=== PATIENT | female | born 1960 | race Caucasian/White ===

== ENCOUNTER → 2016-11-22 | Outpatient (CLI) | payer MEDICARE, OTHER ==
[~2016-11-22] MED LIST: ACETAMINOPHEN TAB 325 MG TAB PO ONE; LORATADINE 10 MG TAB PO ONE; SODIUM CHLORIDE 0.9% 250 ML in EMPTY BAG 1 BAG IV PRN; SODIUM CHLORIDE 0.9% 500 ML in EMPTY BAG 1 BAG IV PRN
[2016-11-22 12:13] VITALS: TEMP 98.5
[2016-11-22 12:52] VITALS: RESP 18
[2016-11-22 13:43] VITALS: BP 107/60; PULSE 64
== END | disposition home or self-care (01) ==
LOC: PROCWHC3 11:33
PROVIDERS: ATTEND Student in an Organized Health Care Education/Training Program
DX: K50.012 Crohn's disease of small intestine with intestinal obstruction (principal)
CPT/HCPCS: 96361; 96413; 96415; J1745

== ENCOUNTER → 2016-12-24 | Outpatient (CLI) | payer MEDICARE, OTHER ==
--- NOTE | 2016-12-24 16:05 | BD ---
EXAMINATION TYPE: MG DEXA axial skeleton. DATE OF EXAM: 12/24/2016 1:33 PM COMPARISON: 2016 CLINICAL HISTORY: disorder of bone, Crohn's disease and postmenopausal female Height: 4'10 Weight: 117 FRAX RISK QUESTIONS: Alcohol (3 or more units per day): no Family History (Parent hip fracture): no Glucocorticoids (More than 3mos): no (Ex: prednisone, prednisolone, methylprednisolone, dexamethasone, and hydrocortisone). History of Fracture in Adulthood: no Secondary Osteoporosis: 1. Type 1 Diabetes: no 2. Hyperthyroidism: no 3. Menopause before 45: yes 4. Malnutrition: no 5. Chronic liver disease: no Rheumatoid Arthritis: no Current Tobacco Use: no RISK FACTORS HISTORY OF: Family History of Osteoporosis: Postmenopausal woman: MEDICATIONS: Thyroid Medications: Which medication: Synthroid How Lon years Additional Medications: Crohn's disease , high blood pressure Additional History: Crohn's disease EXAM MEASUREMENTS: Bone mineral densitometry was performed using the [email or web address] System. Bone mineral density as measured about the Lumbar spine is: ----- L1-L4(G/cm2): 0.985 T Score Values are as follows: ----- L2: -1.6 ----- L3: -1.6 ----- L4: -2.4 ----- L1-L4: -1.6 Bone mineral density has: Increased 1.5% since study of: 10/20/2015 Bone mineral density about the R hip (g/cm2): 0.831 Bone mineral density about the L hip (g/cm2): 0.814 T Score values are as follows: -----R Neck: -1.5 -----L Neck: -1.6 -----R Intertrochanter: -1.0 -----L Intertrochanter: -1.7 Bone mineral density has: Increased 4.2% since study of: 10/20/2015 IMPRESSION: Osteopenia (T Score between -2.5 and -1 as noted by T score valuesL1-L4, Michael Hips There is slightly increased risk of fracture and the patient may be considered for treatment. Re-Screen 1-2 years. NOTE: T-SCORE=SD OF THE YOUNG ADULT MEAN.
== END | disposition home or self-care (01) ==
LOC: RADBDWWP 13:13
PROVIDERS: ATTEND Student in an Organized Health Care Education/Training Program
DX: M85.80 Other specified disorders of bone density and structure, unspecified site (principal); K50.80 Crohn's disease of both small and large intestine without complications
CPT/HCPCS: 77080

== ENCOUNTER → 2017-01-17 | Outpatient (CLI) | payer MEDICARE, OTHER ==
[2017-01-17 12:10] VITALS: RESP 18; TEMP 98.5
[2017-01-17 13:23] VITALS: BP 131/63; PULSE 70
[2017-01-17 15:19] LABS: Hepatitis B Surface Ag Index 0.07
[2017-01-17 15:25] LABS: Hepatitis B Core IgM Index 0.04
[2017-01-17 15:36] LABS: Hepatitis C Virus IgG Index 0.02
[2017-01-17 15:50] LABS: Hepatitis C Virus IgG Ab Negative (Negative)
[2017-01-17 19:19] LABS: Bilirubin, Delta 0.3 mg/dL (0.0-0.2); Total Bilirubin 0.8 mg/dL (0.2-1.3)
== END ==
LOC: PROCWHC3 11:32
PROVIDERS: ATTEND Student in an Organized Health Care Education/Training Program
DX: K50.012 Crohn's disease of small intestine with intestinal obstruction (principal)
CPT/HCPCS: 80076; 80074; 96361; 96413; 96415; 36415; J1745

== ENCOUNTER → 2017-03-20 | Outpatient (CLI) | payer MEDICARE, OTHER ==
[2017-03-20 12:04] VITALS: TEMP 98.1
[2017-03-20 14:01] VITALS: BP 124/54; PULSE 65; RESP 18
== END | disposition home or self-care (01) ==
LOC: PROCWHC3 11:33
PROVIDERS: ATTEND Student in an Organized Health Care Education/Training Program
DX: K50.012 Crohn's disease of small intestine with intestinal obstruction (principal)
CPT/HCPCS: 84450; 96413; 96415; 36415; J1745

== ENCOUNTER → 2017-05-28 | Outpatient (CLI) | payer MEDICARE, OTHER ==
[~2017-05-28] MED LIST changes: -SODIUM CHLORIDE 0.9% 250 ML in EMPTY BAG 1 BAG IV PRN
[2017-05-28 11:49] VITALS: RESP 16; TEMP 99
[2017-05-28 12:34] LABS: Bilirubin, Delta 0.2 mg/dL (0.0-0.2); Total Bilirubin 0.8 mg/dL (0.2-1.3); Total Protein 7.1 g/dL (6.3-8.2)
[2017-05-28 13:55] VITALS: BP 130/62; PULSE 69
== END | disposition home or self-care (01) ==
LOC: PROCWHC3 11:20
PROVIDERS: ATTEND Student in an Organized Health Care Education/Training Program
DX: K50.012 Crohn's disease of small intestine with intestinal obstruction (principal)
CPT/HCPCS: 80076; 96413; 96415; 36415; J1745

== ENCOUNTER → 2017-07-24 | Outpatient (CLI) | payer MEDICARE, OTHER ==
--- NOTE | 2017-07-25 09:06 | MM ---
Reason for exam: screening (asymptomatic). Last mammogram was performed 2 years and 4 months ago. History: Patient history of other cancer. Took progesterone for 3 months. Physical Findings: A clinical breast exam by your physician is recommended on an annual basis and results should be correlated with mammographic findings. MG Screening Mammo w CAD Bilateral CC and MLO view(s) were taken. Prior study comparison: March 14, 2015, bilateral MG screening mammo w CAD. October 03, 2004, bilateral screening mammogram. The breast tissue is heterogeneously dense. This may lower the sensitivity of mammography. There is no discrete abnormality. No significant changes when compared with prior studies. ASSESSMENT: Negative, BI-RAD 1 RECOMMENDATION: Routine screening mammogram of both breasts in 1 year.
== END ==
LOC: RADMAMWWP 11:22
PROVIDERS: ATTEND Family Medicine
DX: Z12.31 Encounter for screening mammogram for malignant neoplasm of breast (principal)

== ENCOUNTER → 2017-11-12 | Outpatient (CLI) | payer MEDICARE, OTHER ==
[~2017-11-12] MED LIST changes: +INFLIXIMAB-DYYB 400 MG in SODIUM CHLORIDE 0.9% 250 ML IV ONE
[2017-11-12 11:55] VITALS: TEMP 98.4
[2017-11-12 12:21] LABS: Bilirubin, Delta 0.4 mg/dL (0.0-0.2); Bilirubin,Unconjugated 0.6 mg/dL (0.0-1.1); Total Protein 7.2 g/dL (6.3-8.2)
[2017-11-12 13:30] VITALS: RESP 14
[2017-11-12 14:13] VITALS: BP 123/80; PULSE 70
== END | disposition home or self-care (01) ==
LOC: PROCWHC3 11:32
PROVIDERS: ATTEND Student in an Organized Health Care Education/Training Program
DX: K50.012 Crohn's disease of small intestine with intestinal obstruction (principal)
CPT/HCPCS: 80076; 96413; 96415; Q5102

== ENCOUNTER → 2018-01-07 | Outpatient (CLI) | payer MEDICARE, OTHER ==
[~2018-01-07] MED LIST changes: +ACETAMINOPHEN TAB 325 MG TAB PO NR; -ACETAMINOPHEN TAB 325 MG TAB PO ONE; +INFLIXIMAB-DYYB 400 MG in SODIUM CHLORIDE 0.9% 250 ML IV NR; -INFLIXIMAB-DYYB 400 MG in SODIUM CHLORIDE 0.9% 250 ML IV ONE; +LORATADINE 10 MG TAB PO NR; -LORATADINE 10 MG TAB PO ONE
[2018-01-07 11:30] VITALS: RESP 16; TEMP 98.5
[2018-01-07 11:55] LABS: Albumin 3.6 g/dL (3.5-5.0); Bilirubin, Delta 0.2 mg/dL (0.0-0.2); Bilirubin,Unconjugated 0.5 mg/dL (0.0-1.1); Total Bilirubin 0.7 mg/dL (0.2-1.3); Total Protein 6.5 g/dL (6.3-8.2)
[2018-01-07 13:15] VITALS: BP 130/84; PULSE 63
== END | disposition home or self-care (01) ==
LOC: PROCWHC3 10:57
PROVIDERS: ATTEND Student in an Organized Health Care Education/Training Program
DX: K50.012 Crohn's disease of small intestine with intestinal obstruction (principal)
CPT/HCPCS: 80076; Q5102; 96413; 96415

== ENCOUNTER → 2018-03-04 | Outpatient (CLI) | payer MEDICARE, OTHER ==
[~2018-03-04] MED LIST changes: -ACETAMINOPHEN TAB 325 MG TAB PO NR; -INFLIXIMAB-DYYB 400 MG in SODIUM CHLORIDE 0.9% 250 ML IV NR; +INFLIXIMAB-DYYB 400 MG in SODIUM CHLORIDE 0.9% 250 ML IV ONE; -LORATADINE 10 MG TAB PO NR
[2018-03-04 11:12] VITALS: TEMP 98.2
[2018-03-04 11:44] LABS: Albumin 4.2 g/dL (3.5-5.0); Bilirubin, Delta 0.4 mg/dL (0.0-0.2); Bilirubin,Unconjugated 0.6 mg/dL (0.0-1.1); Total Protein 7.3 g/dL (6.3-8.2)
[2018-03-04 13:03] VITALS: BP 109/62; PULSE 74; RESP 14
[2018-03-04 19:53] LABS: Hepatitis A Antibody IgM Non-Reactive (Non-Reactive); Hepatitis C IgG Antibody Non-Reactive (Non-Reactive)
== END | disposition home or self-care (01) ==
LOC: PROCWHC3 10:57
PROVIDERS: ATTEND Student in an Organized Health Care Education/Training Program
DX: K50.012 Crohn's disease of small intestine with intestinal obstruction (principal)
CPT/HCPCS: 86803; 86709; 80076; 87340; 86704; 96413; 96415; 36415; Q5103

== ENCOUNTER → 2018-05-01 | Outpatient (CLI) | payer MEDICARE, OTHER ==
[~2018-05-01] MED LIST changes: +ACETAMINOPHEN TAB 325 MG TAB PO ONE; +LORATADINE 10 MG TAB PO ONE
[2018-05-01 12:00] VITALS: TEMP 98.4
[2018-05-01 12:09] LABS: Albumin 3.8 g/dL (3.5-5.0); Bilirubin, Delta 0.2 mg/dL (0.0-0.2); Bilirubin,Unconjugated 0.4 mg/dL (0.0-1.1); Total Bilirubin 0.6 mg/dL (0.2-1.3); Total Protein 6.7 g/dL (6.3-8.2)
[2018-05-01 12:32] VITALS: RESP 18
[2018-05-01 13:11] VITALS: BP 142/81; PULSE 89
== END | disposition home or self-care (01) ==
LOC: PROCWHC3 11:29
PROVIDERS: ATTEND Student in an Organized Health Care Education/Training Program
DX: K50.012 Crohn's disease of small intestine with intestinal obstruction (principal)
CPT/HCPCS: 80076; 96413; 96415; 36415; Q5103

== ENCOUNTER → 2018-06-26 | Outpatient (CLI) | payer MEDICARE, OTHER ==
[~2018-06-26] MED LIST changes: -ACETAMINOPHEN TAB 325 MG TAB PO ONE; +INFLIXIMAB-DYYB 400 MG in SODIUM CHLORIDE 0.9% 250 ML IV NR; -INFLIXIMAB-DYYB 400 MG in SODIUM CHLORIDE 0.9% 250 ML IV ONE; -LORATADINE 10 MG TAB PO ONE
[2018-06-26 11:37] VITALS: TEMP 98
[2018-06-26 12:33] VITALS: RESP 16
[2018-06-26 13:23] VITALS: BP 138/74; PULSE 73
[2018-06-26 13:23] LABS: Albumin 4.1 g/dL (3.5-5.0); Bilirubin, Delta 0.4 mg/dL (0.0-0.2); Bilirubin,Unconjugated 0.7 mg/dL (0.0-1.1); Total Bilirubin 1.1 mg/dL (0.2-1.3); Total Protein 7.5 g/dL (6.3-8.2)
== END | disposition home or self-care (01) ==
LOC: PROCWHC3 11:21
PROVIDERS: ATTEND Student in an Organized Health Care Education/Training Program
DX: K50.012 Crohn's disease of small intestine with intestinal obstruction (principal)
CPT/HCPCS: 80076; 96413; 96415; 36415; Q5103

== ENCOUNTER → 2018-08-21 | Outpatient (CLI) | payer MEDICARE, OTHER ==
[~2018-08-21] MED LIST changes: +ACETAMINOPHEN TAB 325 MG TAB PO NR; +LORATADINE 10 MG TAB PO NR; +SODIUM CHLORIDE 0.9% 500 ML 500 ML in EMPTY BAG 1 BAG IV PRN; -SODIUM CHLORIDE 0.9% 500 ML in EMPTY BAG 1 BAG IV PRN
[2018-08-21 11:44] VITALS: TEMP 98
[2018-08-21 12:53] VITALS: BP 114/74; PULSE 79; RESP 18
[2018-08-21 13:33] LABS: Albumin 3.7 g/dL (3.5-5.0); Bilirubin, Delta 0.4 mg/dL (0.0-0.2); Bilirubin,Unconjugated 0.2 mg/dL (0.0-1.1); Total Bilirubin 0.6 mg/dL (0.2-1.3); Total Protein 6.9 g/dL (6.3-8.2)
== END | disposition home or self-care (01) ==
LOC: PROCWHC3 11:15
PROVIDERS: ATTEND Student in an Organized Health Care Education/Training Program
DX: K50.012 Crohn's disease of small intestine with intestinal obstruction (principal)
CPT/HCPCS: 80076; 96413; 96415; 36415; Q5103

== ENCOUNTER → 2018-09-15 | Outpatient (CLI) | payer MEDICARE, OTHER ==
--- NOTE | 2018-09-16 13:10 | MM ---
Reason for exam: screening (asymptomatic). Last mammogram was performed 1 year and 2 months ago. History: Patient is postmenopausal and has history of other cancer at age 54. Took progesterone for 3 months. Physical Findings: A clinical breast exam by your physician is recommended on an annual basis and results should be correlated with mammographic findings. MG Screening Mammo w CAD Bilateral CC and MLO view(s) were taken. Prior study comparison: July 24, 2017, bilateral MG screening mammo w CAD. March 14, 2015, bilateral MG screening mammo w CAD. There are scattered fibroglandular densities. No significant changes when compared with prior studies. ASSESSMENT: Benign, BI-RAD 2 RECOMMENDATION: Routine screening mammogram of both breasts in 1 year.
== END ==
LOC: RADMAMWWP 13:04
PROVIDERS: ATTEND Family Medicine
DX: Z12.31 Encounter for screening mammogram for malignant neoplasm of breast (principal)
CPT/HCPCS: 77067

== ENCOUNTER → 2018-10-16 | Outpatient (CLI) | payer MEDICARE, OTHER ==
[2018-10-16 11:38] VITALS: TEMP 98
[2018-10-16 12:02] LABS: Albumin 3.8 g/dL (3.5-5.0); Bilirubin, Delta 0.2 mg/dL (0.0-0.2); Bilirubin,Unconjugated 0.8 mg/dL (0.0-1.1)
[2018-10-16 12:47] VITALS: RESP 16
[2018-10-16 13:27] VITALS: BP 133/85; PULSE 74
== END | disposition home or self-care (01) ==
LOC: PROCWHC3 11:23
PROVIDERS: ATTEND Student in an Organized Health Care Education/Training Program
DX: K50.012 Crohn's disease of small intestine with intestinal obstruction (principal)
CPT/HCPCS: 80076; 96413; 96415; 36415; Q5103

== ENCOUNTER → 2018-12-11 | Outpatient (CLI) | payer MEDICARE, OTHER ==
[~2018-12-11] MED LIST changes: -ACETAMINOPHEN TAB 325 MG TAB PO NR; +ACETAMINOPHEN TAB 325 MG TAB PO ONE; -LORATADINE 10 MG TAB PO NR; +LORATADINE 10 MG TAB PO ONE
[2018-12-11 11:07] VITALS: TEMP 98.4
[2018-12-11 11:39] LABS: Albumin 4.2 g/dL (3.5-5.0); Bilirubin, Delta 0.1 mg/dL (0.0-0.2); Total Bilirubin 1.1 mg/dL (0.2-1.3); Total Protein 7.4 g/dL (6.3-8.2)
[2018-12-11 12:41] VITALS: BP 103/69; PULSE 74; RESP 18
[2018-12-11 18:09] LABS: Hepatitis A Antibody IgM Reactive (Non-Reactive); Hepatitis B Core IgM Non-Reactive (Non-Reactive)
== END ==
LOC: PROCWHC3 10:39
PROVIDERS: ATTEND Student in an Organized Health Care Education/Training Program
DX: K50.012 Crohn's disease of small intestine with intestinal obstruction (principal)
CPT/HCPCS: 86709; 80076; 80074; 96413; 96415; 36415; Q5103

== ENCOUNTER → 2018-12-17 | Outpatient (CLI) | payer MEDICARE, OTHER ==
[2018-12-17 15:17] LABS: Basophils # (A) 0.1 k/uL (0-0.2); Basophils % (A) 1 %; Eosinophils # (A) 0.1 k/uL (0-0.7); Eosinophils % (A) 2 %; HCT 44.9 % (34.0-46.0); HGB 14.4 gm/dL (11.4-16.0); Lymphocytes # (A) 2.6 k/uL (1.0-4.8); Lymphocytes % (A) 31 %; MCH 31.5 pg (25.0-35.0); MCHC 32.1 g/dL (31.0-37.0); Mean Platelet Volume 7.6; Monocytes # (A) 0.5 k/uL (0-1.0); Monocytes % (A) 6 %; Neutrophils # (A) 4.8 k/uL (1.3-7.7); Neutrophils % (A) 59 %; Platelet Count 231 k/uL (150-450); RBC 4.58 m/uL (3.80-5.40); RDW 13.2 % (11.5-15.5); WBC 8.2 k/uL (3.8-10.6)
[2018-12-17 15:26] LABS: INR 0.9 (<1.2); Prothrombin Time 9.4 sec (9.0-12.0)
[2018-12-17 19:26] LABS: Albumin 4.3 g/dL (3.80-4.90); Albumin/Globulin Ratio 1.72 (1.60-3.17); Anion Gap 8.3 mmol/L (4.00-12.00); Calcium 9.6 mg/dL (8.7-10.3); Carbon Dioxide 30.7 mmol/L (21.6-31.8); Globulin 2.5 g/dL (1.6-3.3); Potassium 4.4 mmol/L (3.5-5.5); Total Bilirubin 0.7 mg/dL (0.2-1.2); Total Protein 6.8 g/dL (6.2-8.2)
== END ==
LOC: LABWHC1 14:12
PROVIDERS: ATTEND Student in an Organized Health Care Education/Training Program
DX: B15.9 Hepatitis A without hepatic coma (principal); R89.9 Unspecified abnormal finding in specimens from other organs, systems and tissues
CPT/HCPCS: 36415; 80053; 85025; 85610

== ENCOUNTER → 2018-12-24 | Outpatient (CLI) | payer MEDICARE, OTHER ==
[2018-12-24 21:15] LABS: Hepatitis A Ab, Total Reactive (Non-Reactive); Hepatitis A Antibody IgM Non-Reactive (Non-Reactive)
== END ==
LOC: LABWHC1 12:05
PROVIDERS: ATTEND Internal Medicine Gastroenterology
DX: R76.8 Other specified abnormal immunological findings in serum (principal)
CPT/HCPCS: 36415; 86708; 86709

== ENCOUNTER → 2019-02-05 | Outpatient (CLI) | payer MEDICARE, OTHER ==
[2019-02-05 11:51] VITALS: RESP 18; TEMP 98.6
[2019-02-05 12:24] LABS: ALT 27 U/L (9-52); AST 23 U/L (14-36); Albumin 4.1 g/dL (3.5-5.0); Alkaline Phosphatase 121 U/L (38-126); Anion Gap 9 mmol/L; Blood Urea Nitrogen 11 mg/dL (7-17); Calcium 9.7 mg/dL (8.4-10.2); Carbon Dioxide 22 mmol/L (22-30); Chloride 109 mmol/L (98-107); Glucose 102 mg/dL (74-99); Potassium 4.3 mmol/L (3.5-5.1); Sodium 140 mmol/L (137-145); Total Bilirubin 0.9 mg/dL (0.2-1.3); Total Protein 7.4 g/dL (6.3-8.2)
[2019-02-05 12:36] VITALS: BP 126/76; PULSE 64
[2019-02-05 19:46] LABS: Iron Saturation 14.48 (12.00-45.00)
[2019-02-05 19:55] LABS: Vitamin D 25 Hydroxy 23.7 ng/mL (30.0-100.0)
== END ==
LOC: PROCWHC3 10:58
PROVIDERS: ATTEND Student in an Organized Health Care Education/Training Program
DX: K50.819 Crohn's disease of both small and large intestine with unspecified complications (principal)
CPT/HCPCS: 80053; 82607; 83540; 83550; 82306; 96413; 96415; 36415; Q5103

== ENCOUNTER → 2019-02-05 | Outpatient (CLI) | payer MEDICARE, OTHER | END | disposition home or self-care (01) | LOC: LABWHC1 14:06 | PROVIDERS: ATTEND Student in an Organized Health Care Education/Training Program | DX: K50.819 Crohn's disease of both small and large intestine with unspecified complications (principal) | CPT/HCPCS: 36415 ==

== ENCOUNTER → 2019-04-02 | Outpatient (CLI) | payer MEDICARE, OTHER ==
[~2019-04-02] MED LIST changes: +ACETAMINOPHEN TAB 325 MG TAB PO NR; -ACETAMINOPHEN TAB 325 MG TAB PO ONE; +LORATADINE 10 MG TAB PO NR; -LORATADINE 10 MG TAB PO ONE
[2019-04-02 10:59] VITALS: TEMP 98.6
[2019-04-02 11:38] LABS: Basophils # (A) 0.1 k/uL (0-0.2); Basophils % (A) 1 %; Eosinophils # (A) 0.2 k/uL (0-0.7); Eosinophils % (A) 3 %; HCT 42.5 % (34.0-46.0); HGB 14.2 gm/dL (11.4-16.0); Lymphocytes # (A) 1.9 k/uL (1.0-4.8); Lymphocytes % (A) 26 %; MCHC 33.4 g/dL (31.0-37.0); MCV 95.7 fL (80.0-100.0); Mean Platelet Volume 7.8; Monocytes # (A) 0.4 k/uL (0-1.0); Monocytes % (A) 5 %; Neutrophils # (A) 4.7 k/uL (1.3-7.7); Neutrophils % (A) 63 %; Platelet Count 240 k/uL (150-450); RBC 4.44 m/uL (3.80-5.40); RDW 13.7 % (11.5-15.5); WBC 7.4 k/uL (3.8-10.6)
[2019-04-02 11:53] LABS: ALT 18 U/L (9-52); AST 22 U/L (14-36); African American GFR (CKD) >90 (>60 ml/min/1.73 sqM); Albumin 4.1 g/dL (3.5-5.0); Alkaline Phosphatase 121 U/L (38-126); Anion Gap 8 mmol/L; Bilirubin, Delta 0.2 mg/dL (0.0-0.2); Bilirubin,Unconjugated 0.8 mg/dL (0.0-1.1); Blood Urea Nitrogen 12 mg/dL (7-17); Calcium 9.5 mg/dL (8.4-10.2); Carbon Dioxide 23 mmol/L (22-30); Chloride 110 mmol/L (98-107); Cholesterol 161 mg/dL (<200); Glucose 93 mg/dL (74-99); HDL Cholesterol 54 mg/dL (40-60); LDL Cholesterol,Calculated 53 mg/dL (0-99); Potassium 4.1 mmol/L (3.5-5.1); Sodium 141 mmol/L (137-145); Total Protein 7.2 g/dL (6.3-8.2); Triglycerides 271 mg/dL (<150)
[2019-04-02 12:33] VITALS: BP 123/67; PULSE 59; RESP 16
== END | disposition home or self-care (01) ==
LOC: PROCWHC3 10:42
PROVIDERS: ATTEND Family Medicine
DX: K50.812 Crohn's disease of both small and large intestine with intestinal obstruction (principal); E03.9 Hypothyroidism, unspecified; I10 Essential (primary) hypertension; R79.89 Other specified abnormal findings of blood chemistry; E78.00 Pure hypercholesterolemia, unspecified
CPT/HCPCS: 80061; 80053; 84443; 82248; 85025; 87340; 96413; 96415; 36415; Q5103

== ENCOUNTER → 2019-06-01 | Outpatient (CLI) | payer MEDICARE, OTHER ==
[2019-06-01 11:46] VITALS: TEMP 98.8
[2019-06-01 12:21] LABS: Bilirubin, Delta 0.4 mg/dL (0.0-0.2); Bilirubin,Unconjugated 0.7 mg/dL (0.0-1.1); Total Bilirubin 1.1 mg/dL (0.2-1.3)
[2019-06-01 12:37] VITALS: RESP 18
[2019-06-01 12:38] LABS: Total Protein 7.5 g/dL (6.3-8.2)
[2019-06-01 13:29] VITALS: BP 122/69; PULSE 56
== END ==
LOC: PROCWHC3 11:30
PROVIDERS: ATTEND Student in an Organized Health Care Education/Training Program
DX: K50.819 Crohn's disease of both small and large intestine with unspecified complications (principal)
CPT/HCPCS: 80076; 96413; 96415; 36415; Q5103

== ENCOUNTER → 2019-07-27 | Outpatient (CLI) | payer MEDICARE, OTHER ==
[~2019-07-27] MED LIST changes: -ACETAMINOPHEN TAB 325 MG TAB PO NR; +ACETAMINOPHEN TAB 325 MG TAB PO ONE; +INFLIXIMAB-DYYB 400 MG in SODIUM CHLORIDE 0.9% 210 ML IV NR; -INFLIXIMAB-DYYB 400 MG in SODIUM CHLORIDE 0.9% 250 ML IV NR; -LORATADINE 10 MG TAB PO NR; +LORATADINE 10 MG TAB PO ONE
[2019-07-27 11:58] VITALS: PULSE 88; TEMP 98.2
[2019-07-27 12:24] LABS: Albumin 4.1 g/dL (3.5-5.0); Bilirubin, Delta 0.2 mg/dL (0.0-0.2); Bilirubin,Unconjugated 0.7 mg/dL (0.0-1.1); Total Bilirubin 0.9 mg/dL (0.2-1.3); Total Protein 7.5 g/dL (6.3-8.2)
[2019-07-27 13:12] VITALS: RESP 16
[2019-07-27 13:37] VITALS: BP 123/76
== END | disposition home or self-care (01) ==
LOC: PROCWHC3 11:38
PROVIDERS: ATTEND Student in an Organized Health Care Education/Training Program
DX: K50.819 Crohn's disease of both small and large intestine with unspecified complications (principal)
CPT/HCPCS: 80076; 96365; 96366; 36415; Q5103

== ENCOUNTER → 2019-10-12 | Outpatient (CLI) | payer MEDICARE, OTHER ==
--- NOTE | 2019-10-15 10:54 | MM ---
Reason for exam: screening (asymptomatic). Last mammogram was performed 1 year and 1 month ago. History: Patient is postmenopausal and has history of other cancer at age 54. Took progesterone for 3 months. Physical Findings: A clinical breast exam by your physician is recommended on an annual basis and results should be correlated with mammographic findings. MG Screening Mammo w CAD Bilateral CC and MLO view(s) were taken. Prior study comparison: September 15, 2018, bilateral MG screening mammo w CAD. July 24, 2017, bilateral MG screening mammo w CAD. The breast tissue is heterogeneously dense. This may lower the sensitivity of mammography. There are benign appearing round regional calcifications in the right breast. There is no discrete abnormality. ASSESSMENT: Benign, BI-RAD 2 RECOMMENDATION: Routine screening mammogram of both breasts in 1 year.
== END | disposition home or self-care (01) ==
LOC: RADMAMWWP 13:38
PROVIDERS: ATTEND General Practice
DX: Z12.31 Encounter for screening mammogram for malignant neoplasm of breast (principal)
CPT/HCPCS: 77067

== ENCOUNTER 2019-11-07 16:19 | Emergency (ER) | payer MEDICARE, OTHER ==
[2019-11-07 16:24] VITALS: TEMP 98.8
[2019-11-07] MEDS ORDERED: SODIUM CHLORIDE 0.9% 1,000 ML IV STA (16:46)
[2019-11-07] MEDS ORDERED: KETOROLAC 30 MG/ML 1 ML VIAL IVP STA (16:46)
[2019-11-07 17:06] LABS: Basophils % (A) 0 %; Eosinophils # (A) 0.1 k/uL (0-0.7); Eosinophils % (A) 1 %; HGB 14.9 gm/dL (11.4-16.0); Lymphocytes # (A) 1.4 k/uL (1.0-4.8); Lymphocytes % (A) 9 %; MCH 30.3 pg (25.0-35.0); MCHC 31.6 g/dL (31.0-37.0); MCV 95.8 fL (80.0-100.0); Mean Platelet Volume 8.9; Monocytes # (A) 0.4 k/uL (0-1.0); Monocytes % (A) 3 %; Neutrophils # (A) 13.6 k/uL (1.3-7.7); Neutrophils % (A) 87 %; Platelet Count 299 k/uL (150-450); WBC 15.7 k/uL (3.8-10.6)
[2019-11-07 17:11] LABS: Appearance,Urine Cloudy (Clear); Bacteria,Urine Rare /hpf; Bilirubin,Urine Negative (Negative); Blood,Urine Large (Negative); Color,Urine Yellow; Glucose,Urine (UA) Negative (Negative); Ketones,Urine 1+ (Negative); Leukocyte Esterase,Urine Small (Negative); Mucus,Urine Rare /hpf; Nitrite,Urine Negative (Negative); PH, Urine 5.5 (5.0-8.0); Protein,Urine 1+ (Negative); RBC,Urine >182 /hpf (0-5); Specific Gravity,Urine 1.021 (1.001-1.035); Squamous Epithelial Cell,Urine 5 /hpf (0-4); Urobilinogen,Urine <2.0 mg/dL (<2.0); WBC,Urine 14 /hpf (0-5)
[2019-11-07 17:19] LABS: ALT 23 U/L (4-34); AST 33 U/L (14-36); African American GFR (CKD) >90 (>60 ml/min/1.73 sqM); Albumin 4.8 g/dL (3.5-5.0); Alkaline Phosphatase 152 U/L (38-126); Amylase 120 U/L (30-110); Anion Gap 14 mmol/L; Blood Urea Nitrogen 14 mg/dL (7-17); Calcium 10.1 mg/dL (8.4-10.2); Carbon Dioxide 17 mmol/L (22-30); Chloride 108 mmol/L (98-107); Glucose 129 mg/dL (74-99); Non-African American GFR(CKD) 78 (>60 ml/min/1.73 sqM); Potassium 4.4 mmol/L (3.5-5.1); Sodium 139 mmol/L (137-145); Total Bilirubin 1.1 mg/dL (0.2-1.3); Total Protein 8.5 g/dL (6.3-8.2)
--- NOTE | 2019-11-07 17:20 | CT ---
EXAMINATION TYPE: CT abdomen pelvis wo con DATE OF EXAM: 11/07/2019 COMPARISON: November 14, 2012 HISTORY: Right sided flank pain. History of Crohn's. CT DLP: 357.6 mGycm Automated exposure control for dose reduction was used. Multiple axial sections were obtained from the diaphragm to the floor the pelvis with no contrast. Lung bases are clear. There is no pleural effusion. Heart appears normal. There is small calcified gr anuloma in the posterior liver. The bile ducts are not dilated. There are large calcified gallstones. Spleen and pancreas appear normal. Stomach appears normal. There is no adrenal mass. There is right side hydronephrosis and hydroureter. There is 3 mm calculus posterior right kidney. There is 2 mm calculus lower pole right kidney. There are tiny left renal santino culi up to 2 mm. There is no left-sided hydronephrosis. There is right side mild periureteral edema. There are phleboliths in the pelvis on the right side. T here is a 7 mm calculus at the floor of the pelvis on the right side of midline could be in the dista l right ureter. This could also be already in the urinary bladder. Uterus is anteverted. There is no free fluid in the pelvis. There is no inguinal hernia. There is no mesenteric edema. There is no ascites or free air. There is previous intestinal surgery w ith surgical clips in the mid abdomen. There is narrowing of L5-S1 disc space with vacuum disc. There is no lumbar compression fracture. Bony pelvis is intact. There is no evidence of a bowel obstruction. IMPRESSION: Bilateral small renal calculi. Right-sided hydronephrosis and hydroureter with calculus in the pelvis that is probably in the distal right ureter at the ureterovesical junction or within the urinary bladder. Obstruction is new compar ed to old exam. Cholelithiasis.
--- NOTE | 2019-11-07 17:42 | ED ---
General Adult HPI - General Chief complaint: Urogenital Stated complaint: Possible UTI/Kidney infection Time Seen by Provider: 11/07/19 16:40 Source: patient, RN notes reviewed Mode of arrival: ambulatory Limitations: no limitations - History of Present Illness Initial comments: 59-year-old female with a past medical history of Crohn's disease, GERD, hy pertension presents to the emergency department for a chief complaint of right flank pain. Patient has had right flank pain since this morning. She also noticed some blood in her urine however that has improved. Patient states that she feels like she has a kidney stone. She states this does not feel like a Crohn's exacerbation. Denies nausea.Patient has no other complaints at this time including shortness of breath, chest pain, nausea or vomiting, headache, or visual changes. - Related Data Home Medications Medication Instructions Recorded Confirmed Calcium Carb-Vit D 500Mg-200Un 1 tab PO DAILY 03/29/14 07/27/19 [Oscal 500+D] Ergocalciferol (Vitamin D2) 5,000 unit PO DAILY 03/29/14 07/27/19 [Drisdol] Levothyroxine Sodium [Synthroid] 25 mcg PO DAILY 03/29/14 07/27/19 Magnesium Gluconate [Magonate] 500 mg PO DAILY 03/29/14 07/27/19 Marijuana 1 dose INHALATION DIRECTED 03/29/14 07/27/19 Metoprolol Succinate [Toprol XL] 50 mg PO DAILY 03/29/14 07/27/19 inFLIXimab [Remicade] 400 mg IVPB DIRECTED 03/29/14 07/27/19 Previous Rx's Medication Instructions Recorded HYDROcodone/APAP 5-325MG [[place] 1 tab PO Q6HR PRN #10 tab 11/07/19 5-325] Ibuprofen [Motrin] 600 mg PO Q8HR PRN #20 tab 11/07/19 Ondansetron [Zofran ODT] 4 mg PO Q8HR PRN #15 tab 11/07/19 Tamsulosin [Flomax] 0.4 mg PO DAILY #7 cap 11/07/19 Allergies Allergy/AdvReac Type Severity Reaction Status Date / Time erythromycin base Allergy Rash/Hives Verified 07/27/19 11:59 [Erythromycin Base] mesalamine [From Pentasa] Allergy Rash/Hives Verified 07/27/19 11:59 nifedipine [From Procardia] Allergy Rash/Hives Verified 07/27/19 11:59 Penicillins Allergy Rash/Hives Verified 07/27/19 11:59 Review of Systems ROS Statement: Those systems with pertinent positive or pertinent negative responses have been documented in the HPI. ROS Other: All systems not noted in ROS Statement are negative. Past Medical History Past Medical History: GERD/Reflux, Hypertension, Renal Disease Additional Past Medical History / Comment(s): Hx. cardiac cath after subcut kidney surgery oct 2011 Hx. Crohns History of Any Multi-Drug Resistant Organisms: None Reported Past Surgical History: Bowel Resection, Heart Catheterization Additional Past Surgical History / Comment(s): Hx colostomy 1994-reversed since after 1 year. 2006 hernia rt lower abdomen()incisional) 2010- bowel resection, 2011-kidney sugery - subcut kidney surgery Past Psychological History: Anxiety Smoking Status: Never smoker Past Alcohol Use History: None Reported Past Drug Use History: Marijuana - Past Family History Father Family Medical History: Cancer, Prostate Disorder Sister(s) Family Medical History: Cancer Additional Family Medical History / Comment(s): One sister- cancer second sister -Diabetes Son(s) Family Medical History: Cancer Additional Family Medical History / Comment(s): Son-lymphoma at present General Exam Limitations: no limitations General appearance: alert, in no apparent distress Head exam: Present: atraumatic, normocephalic, normal inspection Eye exam: Present: normal appearance, PERRL, EOMI. Absent: scleral icterus, conjunctival injection, periorbital swelling ENT exam: Present: normal exam, mucous membranes moist Neck exam: Present: normal inspection, full ROM. Absent: tenderness, meningismus, lymphadenopathy Respiratory exam: Present: normal lung sounds bilaterally. Absent: respiratory distress, wheezes, rales, rhonchi, stridor Cardiovascular Exam: Present: regular rate, normal rhythm, normal heart sounds. Absent: systolic murmur, diastolic murmur, rubs, gallop, clicks GI/Abdominal exam: Present: soft, normal bowel sounds. Absent: distended, tenderness, guarding, rebound, rigid Back exam: Present: CVA tenderness (R). Absent: CVA tenderness (L) Course Vital Signs 11/07/19 11/07/19 11/07/19 16:22 18:17 19:28 Temperature 98.8 F Pulse Rate 98 87 78 Respiratory 18 16 18 Rate Blood Pressure 121/72 152/82 128/72 O2 Sat by Pulse 97 100 100 Oximetry Medical Decision Making - Medical Decision Making CBC shows mild leukocytosis of 15.7, likely reactive. There is a mild elevation in amylase and lipase however symptoms are not consistent with pancreatitis. Urinalysis shows 182 red blood cells with 14 white blood cells. Nitrate negative. CT abdomen and pelvis shows right-sided hydronephrosis with hydroureter with contrast in the pelvis that is probably the distal right ureter or within the urinary bladder. Obstruction is new. This is consistent with patient's pain. Patient has pain controlled at this time. Patient be discharged home to follow up with primary care and urology. She already follows with urology. She will return if she has any worsening symptoms. Discussed sandra logan with Dr. Reed - Lab Data Result diagrams: 11/07/19 16:40 11/07/19 16:40 Lab Results 11/07/19 11/07/19 11/07/19 Range/Units 16:40 16:40 16:40 WBC 15.7 H (3.8-10.6) k/uL RBC 4.90 (3.80-5.40) m/uL Hgb 14.9 (11.4-16.0) gm/dL Hct 47.0 H (34.0-46.0) % MCV 95.8 (80.0-100.0) fL MCH 30.3 (25.0-35.0) pg MCHC 31.6 (31.0-37.0) g/dL RDW 13.0 (11.5-15.5) % Plt Count 299 (150-450) k/uL Neutrophils % 87 % Lymphocytes % 9 % Monocytes % 3 % Eosinophils % 1 % Basophils % 0 % Neutrophils # 13.6 H (1.3-7.7) k/uL Lymphocytes # 1.4 (1.0-4.8) k/uL Monocytes # 0.4 (0-1.0) k/uL Eosinophils # 0.1 (0-0.7) k/uL Basophils # 0.0 (0-0.2) k/uL Sodium 139 (137-145) mmol/L Potassium 4.4 (3.5-5.1) mmol/L Chloride 108 H (98-107) mmol/L Carbon Dioxide 17 L (22-30) mmol/L Anion Gap 14 mmol/L BUN 14 (7-17) mg/dL Creatinine 0.82 (0.52-1.04) mg/dL Est GFR (CKD-EPI)AfAm >90 (>60 ml/min/1.73 sqM) Est GFR (CKD-EPI)NonAf 78 (>60 ml/min/1.73 sqM) Glucose 129 H (74-99) mg/dL Calcium 10.1 (8.4-10.2) mg/dL Total Bilirubin 1.1 (0.2-1.3) mg/dL AST 33 (14-36) U/L ALT 23 (4-34) U/L Alkaline Phosphatase 152 H (38-126) U/L Total Protein 8.5 H (6.3-8.2) g/dL Albumin 4.8 (3.5-5.0) g/dL Amylase 120 H (30-110) U/L Lipase 378 H (23-300) U/L Urine Color Yellow Urine Appearance Cloudy H (Clear) Urine pH 5.5 (5.0-8.0) Ur Specific [place] 1.021 (1.001-1.035) Urine Protein 1+ H (Negative) Urine Glucose (UA) Negative (Negative) Urine Ketones 1+ H (Negative) Urine Blood Large H (Negative) Urine Nitrite Negative (Negative) Urine Bilirubin Negative (Negative) Urine Urobilinogen <2.0 (<2.0) mg/dL Ur Leukocyte Esterase Small H (Negative) Urine RBC >182 H (0-5) /hpf Urine WBC 14 H (0-5) /hpf Ur Squamous Epith Cells 5 H (0-4) /hpf Urine Bacteria Rare H (None) /hpf Urine Mucus Rare H (None) /hpf Disposition Clinical Impression: Kidney stone Disposition: HOME SELF-CARE Condition: Good Instructions (If sedation given, give patient instructions): Kidney Stones (ED) Additional Instructions: Please take medications as directed. Follow-up with primary care and urology. Return here if you've any worsening symptoms. Prescriptions: Tamsulosin [Flomax] 0.4 mg PO DAILY #7 cap Ibuprofen [Motrin] 600 mg PO Q8HR PRN #20 tab PRN Reason: Pain HYDROcodone/APAP 5-325MG [[place] 5-325] 1 tab PO Q6HR PRN #10 tab PRN Reason: Pain Ondansetron [Zofran ODT] 4 mg PO Q8HR PRN #15 tab PRN Reason: Nausea Is patient prescribed a controlled substance at d/c from ED?: Yes When asked, does pt state using other controlled substances?: No If prescribed controlled substance>3 days was MAPS reviewed?: Prescribed <3 Days If opioid is for acute pain is fill amount 7 days or less?: Yes If Rx opioid, was Start Talking consent form obtained?: Yes Referrals: Cameron Toribio MD [Primary Care Provider] - 1-2 days
[2019-11-07] MEDS ORDERED: HYDROmorphone 0.5 MG/0.5 ML SYRINGE IVP STA (17:51)
[2019-11-07] MEDS ORDERED: ONDANSETRON 4 MG/2 ML VIAL IVP STA (17:56)
[2019-11-07 19:29] VITALS: BP 128/72; PULSE 78; RESP 18
== END 2019-11-07 19:28 | disposition home or self-care (01) ==
LOC: EC 16:19
DX: N13.2 Hydronephrosis with renal and ureteral calculous obstruction (principal); I10 Essential (primary) hypertension; Z79.890 Hormone replacement therapy; Z79.899 Other long term (current) drug therapy; Z88.0 Allergy status to penicillin; Z88.1 Allergy status to other antibiotic agents; Z88.8 Allergy status to other drugs, medicaments and biological substances
CPT/HCPCS: 36415; 80053; 82150; 83690; 85025; 81001; 87086; 74176; 99284; 96374; 96375 ×2; 96361 ×3; J2405; J1885; J1170

== ENCOUNTER 2020-04-02 22:32 | Emergency (ER) | payer MEDICARE, OTHER ==
[2020-04-02 23:18] LABS: Granular Casts,Urine 36 /lpf (0); Hyaline Casts,Urine 31 /lpf (0-2); Mucus,Urine Many /hpf; RBC,Urine 18 /hpf (0-5); Squamous Epithelial Cell,Urine 6 /hpf (0-4); WBC,Urine 11 /hpf (0-5)
[2020-04-02 23:19] LABS: Appearance,Urine Clear (Clear)
[2020-04-02 23:20] LABS: Bilirubin,Urine 2+ (Negative); Blood,Urine Moderate (Negative); Glucose,Urine (UA) Negative (Negative); Ketones,Urine 2+ (Negative); Leukocyte Esterase,Urine Negative (Negative); Nitrite,Urine Negative (Negative); Protein,Urine 2+ (Negative); Specific Gravity,Urine 1.035 (1.001-1.035)
[2020-04-02] MEDS ORDERED: ONDANSETRON 4 MG/2 ML VIAL IVP STA (23:34)
[2020-04-02] MEDS ORDERED: SODIUM CHLORIDE 0.9% 1,000 ML IV ONE (23:35)
--- NOTE | 2020-04-02 23:39 | ED ---
Abdominal Pain HPI - General Chief Complaint: Abdominal Pain Stated Complaint: Abdominal pain Time Seen by Provider: 04/02/20 23:02 Source: patient Mode of arrival: ambulatory Limitations: no limitations - History of Present Illness Initial Comments: 's patient is a 59-year-old woman with history of Crohn's disease who presents to be evaluated for what she describes as 3 days of "rotten stomach", the patient states that by this she means that she has been feeling nausea. She has not had actual vomiting. She has had also intermittent bilateral flank pains, more frequently on the left and usually a little more intense on the left. She states that it is dull, intermittent, and that she currently has no pain. Patient states that it does get up to moderate intensity at times. In addition she has had watery diarrhea. The patient states that due to her Crohn's disease she always has diarrhea but today is more watery and it appears green which is different than normal. She has had a total of 5 bowel movements today. No blood or tarry material. No fever or chills. No symptoms into the chest. MD Complaint: flank pain Onset/Timin -: days(s) Location: L flank, R flank Radiation: none Migration to: no migration Quality: dull Consistency: intermittent, now resolved Improves With: nothing Worsens With: nothing Associated Symptoms: nausea, diarrhea - Related Data Home Medications Medication Instructions Recorded Confirmed Calcium Carb-Vit D 500Mg-200Un 1 tab PO DAILY 03/29/14 07/27/19 [Oscal 500+D] Ergocalciferol (Vitamin D2) 5,000 unit PO DAILY 03/29/14 07/27/19 [Drisdol] Levothyroxine Sodium [Synthroid] 25 mcg PO DAILY 03/29/14 07/27/19 Magnesium Gluconate [Magonate] 500 mg PO DAILY 03/29/14 07/27/19 Marijuana 1 dose INHALATION DIRECTED 03/29/14 07/27/19 Metoprolol Succinate [Toprol XL] 50 mg PO DAILY 03/29/14 07/27/19 inFLIXimab [Remicade] 400 mg IVPB DIRECTED 03/29/14 07/27/19 Previous Rx's Medication Instructions Recorded HYDROcodone/APAP 5-325MG [[place] 1 tab PO Q6HR PRN #10 tab 11/07/19 5-325] Ibuprofen [Motrin] 600 mg PO Q8HR PRN #20 tab 11/07/19 Ondansetron [Zofran ODT] 4 mg PO Q8HR PRN #15 tab 11/07/19 Tamsulosin [Flomax] 0.4 mg PO DAILY #7 cap 11/07/19 Promethazine [Phenergan] 25 mg PO Q6HR PRN #12 tablet 04/03/20 Tamsulosin [Flomax] 0.4 mg PO DAILY #14 cap 04/03/20 Allergies Allergy/AdvReac Type Severity Reaction Status Date / Time erythromycin base Allergy Rash/Hives Verified 04/02/20 22:51 [Erythromycin Base] mesalamine [From Pentasa] Allergy Rash/Hives Verified 04/02/20 22:51 nifedipine [From Procardia] Allergy Rash/Hives Verified 04/02/20 22:51 Penicillins Allergy Rash/Hives Verified 04/02/20 22:51 Review of Systems ROS Statement: Those systems with pertinent positive or pertinent negative responses have been documented in the HPI. ROS Other: All systems not noted in ROS Statement are negative. Constitutional: Denies: fever, chills, weakness Respiratory: Denies: cough, dyspnea Cardiovascular: Denies: chest pain, palpitations, edema, syncope Endocrine: Reports: fatigue Gastrointestinal: Reports: abdominal pain, nausea, diarrhea. Denies: vomiting, constipation, melena, hematochezia Genitourinary: Denies: dysuria, frequency, hematuria Musculoskeletal: Denies: back pain Skin: Denies: rash Neurological: Denies: headache, weakness, numbness Past Medical History Past Medical History: GERD/Reflux, Hypertension, Renal Disease Additional Past Medical History / Comment(s): Hx. cardiac cath after subcut kidney surgery oct 2011 Hx. Crohns History of Any Multi-Drug Resistant Organisms: None Reported Past Surgical History: Bowel Resection, Heart Catheterization Additional Past Surgical History / Comment(s): Hx colostomy 1994-reversed since after 1 year. 2006 hernia rt lower abdomen()incisional) 2010- bowel r esection, 2011-kidney sugery - subcut kidney surgery Past Psychological History: Anxiety Smoking Status: Never smoker Past Alcohol Use History: None Reported Past Drug Use History: Marijuana - Past Family History Father Family Medical History: Cancer, Prostate Disorder Sister(s) Family Medical History: Cancer Additional Family Medical History / Comment(s): One sister- cancer second sister -Diabetes Son(s) Family Medical History: Cancer Additional Family Medical History / Comment(s): Son-lymphoma at present General Exam Limitations: no limitations General appearance: alert, in no apparent distress Head exam: Present: atraumatic, normocephalic Eye exam: Present: normal appearance. Absent: scleral icterus, conjunctival injection ENT exam: Present: mucous membranes dry Neck exam: Present: normal inspection Respiratory exam: Present: normal lung sounds bilaterally. Absent: respiratory distress, wheezes, rales, rhonchi, stridor Cardiovascular Exam: Present: regular rate, normal rhythm, normal heart sounds. Absent: systolic murmur, diastolic murmur, rubs, gallop GI/Abdominal exam: Present: soft. Absent: distended, tenderness, guarding, rebound, rigid, mass, pulsatile mass, hernia Extremities exam: Present: normal inspection, normal capillary refill. Absent: pedal edema, calf tenderness Back exam: Present: normal inspection. Absent: CVA tenderness (R), CVA tenderness (L) Neurological exam: Present: alert Skin exam: Present: warm, dry, intact, normal color. Absent: rash Course Vital Signs 04/02/20 04/02/20 22:46 23:40 Temperature 98.8 F Pulse Rate 120 H 92 Respiratory 20 16 Rate Blood Pressure 185/95 170/90 O2 Sat by Pulse 98 95 Oximetry Medical Decision Making - Lab Data Result diagrams: 04/02/20 23:38 04/02/20 23:38 Lab Results 04/02/20 04/02/20 04/02/20 Range/Units 22:59 23:38 23:38 WBC 10.9 H (3.8-10.6) k/uL RBC 5.03 (3.80-5.40) m/uL Hgb 16.1 H (11.4-16.0) gm/dL Hct 48.2 H (34.0-46.0) % MCV 95.8 (80.0-100.0) fL MCH 32.1 (25.0-35.0) pg MCHC 33.5 (31.0-37.0) g/dL RDW 13.4 (11.5-15.5) % Plt Count 271 (150-450) k/uL Neutrophils % 78 % Lymphocytes % 14 % Monocytes % 5 % Eosinophils % 1 % Basophils % 1 % Neutrophils # 8.5 H (1.3-7.7) k/uL Lymphocytes # 1.6 (1.0-4.8) k/uL Monocytes # 0.5 (0-1.0) k/uL Eosinophils # 0.1 (0-0.7) k/uL Basophils # 0.1 (0-0.2) k/uL Sodium 136 L (137-145) mmol/L Potassium 3.5 (3.5-5.1) mmol/L Chloride 103 (98-107) mmol/L Carbon Dioxide 20 L (22-30) mmol/L Anion Gap 13 mmol/L BUN 15 (7-17) mg/dL Creatinine 0.84 (0.52-1.04) mg/dL Est GFR (CKD-EPI)AfAm 87 (>60 ml/min/1.73 sqM) Est GFR (CKD-EPI)NonAf 76 (>60 ml/min/1.73 sqM) Glucose 148 H (74-99) mg/dL Plasma Lactic Acid Bhargav (0.7-2.0) mmol/L Calcium 10.0 (8.4-10.2) mg/dL Total Bilirubin 1.8 H (0.2-1.3) mg/dL AST 47 H (14-36) U/L ALT 33 (4-34) U/L Alkaline Phosphatase 151 H (38-126) U/L C-Reactive Protein 5.9 (<10.0) mg/L Total Protein 8.6 H (6.3-8.2) g/dL Albumin 4.8 (3.5-5.0) g/dL Amylase 201 H (30-110) U/L Lipase 629 H (23-300) U/L Urine Color Dark Yellow Urine Appearance Clear (Clear) Urine pH 6.0 (5.0-8.0) Ur Specific [place] 1.035 (1.001-1.035) Urine Protein 2+ (Negative) Urine Glucose (UA) Negative (Negative) Urine Ketones 2+ (Negative) Urine Blood Moderate H (Negative) Urine Nitrite Negative (Negative) Urine Bilirubin 2+ H (Negative) Urine Urobilinogen 2.0 (<2.0) mg/dL Ur Leukocyte Esterase Negative (Negative) Urine RBC 18 H (0-5) /hpf Urine WBC 11 H (0-5) /hpf Ur Squamous Epith Cells 6 H (0-4) /hpf Hyaline Casts 31 H (0-2) /lpf Granular Casts 36 (0) /lpf Urine Mucus Many H (None) /hpf 04/02/ Range/Units 23:38 WBC (3.8-10.6) k/uL RBC (3.80-5.40) m/uL Hgb (11.4-16.0) gm/dL Hct (34.0-46.0) % MCV (80.0-100.0) fL MCH (25.0-35.0) pg MCHC (31.0-37.0) g/dL RDW (11.5-15.5) % Plt Count (150-450) k/uL Neutrophils % % Lymphocytes % % Monocytes % % Eosinophils % % Basophils % % Neutrophils # (1.3-7.7) k/uL Lymphocytes # (1.0-4.8) k/uL Monocytes # (0-1.0) k/uL Eosinophils # (0-0.7) k/uL Basophils # (0-0.2) k/uL Sodium (137-145) mmol/L Potassium (3.5-5.1) mmol/L Chloride (98-107) mmol/L Carbon Dioxide (22-30) mmol/L Anion Gap mmol/L BUN (7-17) mg/dL Creatinine (0.52-1.04) mg/dL Est GFR (CKD-EPI)AfAm (>60 ml/min/1.73 sqM) Est GFR (CKD-EPI)NonAf (>60 ml/min/1.73 sqM) Glucose (74-99) mg/dL Plasma Lactic Acid Bhargav 1.8 (0.7-2.0) mmol/L Calcium (8.4-10.2) mg/dL Total Bilirubin (0.2-1.3) mg/dL AST (14-36) U/L ALT (4-34) U/L Alkaline Phosphatase (38-126) U/L C-Reactive Protein (<10.0) mg/L Total Protein (6.3-8.2) g/dL Albumin (3.5-5.0) g/dL Amylase (30-110) U/L Lipase (23-300) U/L Urine Color Urine Appearance (Clear) Urine pH (5.0-8.0) Ur Specific [place] (1.001-1.035) Urine Protein (Negative) Urine Glucose (UA) (Negative) Urine Ketones (Negative) Urine Blood (Negative) Urine Nitrite (Negative) Urine Bilirubin (Negative) Urine Urobilinogen (<2.0) mg/dL Ur Leukocyte Esterase (Negative) Urine RBC (0-5) /hpf Urine WBC (0-5) /hpf Ur Squamous Epith Cells (0-4) /hpf Hyaline Casts (0-2) /lpf Granular Casts (0) /lpf Urine Mucus (None) /hpf Disposition Clinical Impression: Calculus of kidney Disposition: HOME SELF-CARE Condition: Good Prescriptions: Tamsulosin [Flomax] 0.4 mg PO DAILY #14 cap Promethazine [Phenergan] 25 mg PO Q6HR PRN #12 tablet PRN Reason: Vomiting Is patient prescribed a controlled substance at d/c from ED?: No Referrals: Cameron Toribio MD [STAFF PHYSICIAN] - 1-2 days
[2020-04-02 23:57] LABS: Basophils # (A) 0.1 k/uL (0-0.2); Basophils % (A) 1 %; Eosinophils # (A) 0.1 k/uL (0-0.7); Eosinophils % (A) 1 %; HCT 48.2 % (34.0-46.0); HGB 16.1 gm/dL (11.4-16.0); Lymphocytes # (A) 1.6 k/uL (1.0-4.8); Lymphocytes % (A) 14 %; MCH 32.1 pg (25.0-35.0); MCHC 33.5 g/dL (31.0-37.0); MCV 95.8 fL (80.0-100.0); Mean Platelet Volume 8.4; Monocytes # (A) 0.5 k/uL (0-1.0); Monocytes % (A) 5 %; Neutrophils # (A) 8.5 k/uL (1.3-7.7); Neutrophils % (A) 78 %; Platelet Count 271 k/uL (150-450); RBC 5.03 m/uL (3.80-5.40); RDW 13.4 % (11.5-15.5); WBC 10.9 k/uL (3.8-10.6)
[2020-04-03 00:13] LABS: Albumin 4.8 g/dL (3.5-5.0); C Reactive Protein 5.9 mg/L (<10.0); Total Bilirubin 1.8 mg/dL (0.2-1.3); Total Protein 8.6 g/dL (6.3-8.2)
[2020-04-03 00:27] LABS: Potassium 3.5 mmol/L (3.5-5.1)
[2020-04-03] MEDS ORDERED: LORazepam 2 MG/ML INJ IV STA (02:32)
--- NOTE | 2020-04-03 03:27 | CT ---
EXAMINATION TYPE: CT abdomen pelvis wo con DATE OF EXAM: 04/03/2020 COMPARISON: 11/07/2019 HISTORY: Left Flank Pain CT DLP: 383.20 mGycm Automated exposure control for dose reduction was used. The lung bases are clear of infiltrate. There is no pleural effusion. Heart size is fairly normal. Th ere is no pericardial effusion. Liver spleen pancreas appear normal. There are large calcified gallstones. Bile ducts are not dilated . Stomach is intact. There is no adrenal mass. Kidneys have normal size and contour. There is 5 mm calculus lower pole lef t kidney. The ureters are not dilated. There is no retroperitoneal adenopathy. Bladder distends jonna hly. There is no inguinal hernia. Uterus is anteverted. There is no free fluid in the pelvis. There i s no evidence of a pelvic mass. There is no mesenteric edema. There is no ascites or free air. There is no bowel obstruction. There are surgical clips in the small bowel in the mid abdomen. I see no di lated small bowel. Exam is limited with lack of oral contrast. Thoracic and lumbar vertebra appear intact. There is mild spurring of the endplates. There is no comp ression fracture. There is slight thoracolumbar levoscoliosis. There is apparent resection of the rig ht hemicolon. IMPRESSION: Nonobstructing left renal calculus. 1 mm right renal calculus. Cholelithiasis. I do not see a cause f or left lower quadrant pain. No bowel obstruction. Right renal calculi decreased compared to old exam . There is clearing of the right-sided hydronephrosis and hydroureter compared to old exam. Left eulogio l calculus increased compared to old exam.
[2020-04-03] MEDS ORDERED: PROMETHAZINE INJ 25 MG in SODIUM CHLORIDE 0.9% 50 ML IVPB STA (04:25)
[2020-04-03] MEDS: TAMSULOSIN 0.4 MG CAP.ER.24H PO STA ×2 (04:50→04:51)
[2020-04-03] MEDS ORDERED: SIMETHICONE 80 MG CHEWABLE PO STA (05:31)
[2020-04-03 06:01] VITALS: BP 150/80; PULSE 84; RESP 18; TEMP 98.2
[2020-04-03 20:56] LABS: Color,Urine Dark Yellow
== END 2020-04-03 06:01 | disposition home or self-care (01) ==
LOC: EC 22:32
DX: N20.0 Calculus of kidney (principal); I10 Essential (primary) hypertension; Z95.5 Presence of coronary angioplasty implant and graft; Z79.899 Other long term (current) drug therapy; Z88.0 Allergy status to penicillin; Z88.1 Allergy status to other antibiotic agents; Z88.8 Allergy status to other drugs, medicaments and biological substances
CPT/HCPCS: 36415; 80053; 82150; 83605; 83690; 85025; 86140; 81001; 87040; 87086; 74176; 99284; 96365; 96375 ×2; 96361 ×4; J2060; J2550; J2405; 87077; 87186

== ENCOUNTER → 2021-01-05 | Outpatient (CLI) | payer MEDICARE, OTHER ==
--- NOTE | 2021-01-06 11:21 | MM ---
Reason for exam: screening (asymptomatic). Last mammogram was performed 1 year and 3 months ago. History: Patient is postmenopausal and has history of other cancer at age 54. Took hormonal contraceptives for 2 years. Took progesterone for 3 months. Physical Findings: A clinical breast exam by your physician is recommended on an annual basis and results should be correlated with mammographic findings. MG 3D Screening Mammo W/Cad Bilateral CC and MLO view(s) were taken. Prior study comparison: October 12, 2019, bilateral MG screening mammo w CAD. September 15, 2018, bilateral MG screening mammo w CAD. There are scattered fibroglandular densities. There is no discrete abnormality. No significant changes when compared with prior studies. ASSESSMENT: Negative, BI-RAD 1 RECOMMENDATION: Routine screening mammogram of both breasts in 1 year.
== END | disposition home or self-care (01) ==
LOC: RADMAMWWP 07:32
PROVIDERS: ATTEND Family Medicine
DX: Z12.31 Encounter for screening mammogram for malignant neoplasm of breast (principal); Z78.0 Asymptomatic menopausal state
CPT/HCPCS: 77063; 77067

== ENCOUNTER 2022-07-26 18:01 | Inpatient (IN) | payer MEDICARE, OTHER ==
[2022-07-26] MEDS ORDERED: SODIUM CHLORIDE 0.9% 1,000 ML IV STA ×2 (18:32→20:18)
[2022-07-26] MEDS ORDERED: ONDANSETRON 4 MG/2 ML VIAL IVP STA ×2 (18:42→20:38)
[2022-07-26] MEDS ORDERED: LOPERAMIDE 2 MG CAP PO STA (18:42)
--- NOTE | 2022-07-26 18:46 | ED ---
General Adult HPI - General Chief complaint: Abdominal Pain Stated complaint: High BP, Nausea Time Seen by Provider: 07/26/22 18:28 Source: patient Mode of arrival: ambulatory Limitations: no limitations - History of Present Illness Initial comments: Dictation was produced using [employer] dictation software. please excuse any grammatical, word or spelling errors. Chief Complaint: 61-year-old female presents emergency department for 3-4 days of diarrhea History of Present Illness: 61-year-old female. Presents to the emergency department for profuse and persistent diarrhea. Denies any history of C. diff. No recent travel. Patient states that she did have low-grade temperatures at home yesterday. No one around her is sick. Did not eat any strange or weird foods. No recent camping. Patient states that she does not have any abdominal pain. States that her diarrhea is constant initially appeared to resemble whatever she drank but as of the last 24 hours it's been brown in [place]. Patient states she's lost 5 pounds of water weight. No recent changes to medications. No recent antibiotics. No recent hospitalizations. The ROS documented in this emergency department record has been reviewed and confirmed by me. Those systems with pertinent positive or negative responses have been documented in the HPI. All other systems are other negative and/or noncontributory. PHYSICAL EXAM: General Impression: Alert and oriented x3, not in acute distress HEENT: Normocephalic atraumatic, extra-ocular movements intact, pupils equal and reactive to light bilaterally, dry mucous membranes Cardiovascular: Heart regular rate and rhythm Chest: Able to complete full sentences, no retractions, no tachypnea Abdomen: abdomen soft, non-tender, non-distended, no organomegaly, no pain in McBurney's point, negative Lewis's sign, no palpable tenderness of left lower quadrant Musculoskeletal: Pulses present and equal in all extremities, no peripheral edema Motor: no focal deficits noted Neurological: CN II-XII grossly intact, no focal motor or sensory deficits noted Skin: Intact with no visualized rashes Psych: Normal affect and mood ED course: 61-year-old female presents to the emergency department for persistent intractable diarrhea. Vital signs upon arrival shows heart rate of 132, rest of vital signs within acceptable limits. Laboratory evaluation obtained. Leukocytosis of 15.9, hemoconcentration with hemoglobin of 17.1. Metabolic panel shows gap acidosis concerning for severe dehydration. Elevated renal markers. 4 panel viral PCR is negative. Patient reevaluated at bedside still feels fairly ill. Patient benefit from hospital admission for symptom control IV hydration and inpatient care. EKG interpretation: Ventricular rate 87, sinus rhythm, UT interval 150, Q's 86, QTC 41. No UT prolongation, no QTC prolongation, no ST or T-wave changes noted. Overall, this EKG is unremarkable - Related Data Home Medications Medication Instructions Recorded Confirmed Levothyroxine Sodium [Synthroid] 25 mcg PO DAILY 03/29/14 07/27/19 Metoprolol Succinate [Toprol XL] 50 mg PO DAILY 03/29/14 07/27/19 Cyanocobalamin [Vitamin B-12 1,000 mcg SQ QMONTHLY 07/26/22 07/26/22 Injection] Ustekinumab [Stelara] 90 mg SQ QMONTHLY 07/26/22 07/26/22 Allergies Allergy/AdvReac Type Severity Reaction Status Date / Time erythromycin base Allergy Rash/Hives Verified 07/26/22 18:25 [Erythromycin Base] mesalamine [From Pentasa] Allergy Rash/Hives Verified 07/26/22 18:25 nifedipine [From Procardia] Allergy Rash/Hives Verified 07/26/22 18:25 Penicillins Allergy Rash/Hives Verified 07/26/22 18:25 Review of Systems ROS Statement: Those systems with pertinent positive or pertinent negative responses have been documented in the HPI. ROS Other: All systems not noted in ROS Statement are negative. Past Medical History Past Medical History: GERD/Reflux, Hypertension, Renal Disease Additional Past Medical History / Comment(s): Hx. cardiac cath after subcut kidney surgery oct 2011 Hx. Crohns History of Any Multi-Drug Resistant Organisms: ESBL Date of last positivie culture/infection: 04/02/20 MDRO Source:: URINE ESBL Past Surgical History: Bowel Resection, Heart Catheterization Additional Past Surgical History / Comment(s): Hx colostomy 1994-reversed since after 1 year. 2007 hernia rt lower abdomen()incisional) 2010- bowel resection, 2011-kidney sugery - subcut kidney surgery Past Psychological History: Anxiety Smoking Status: Never smoker Past Alcohol Use History: None Reported Past Drug Use History: Marijuana - Past Family History Father Family Medical History: Cancer, Prostate Disorder Sister(s) Family Medical History: Cancer Additional Family Medical History / Comment(s): One sister- cancer second sister -Diabetes Son(s) Family Medical History: Cancer Additional Family Medical History / Comment(s): Son-lymphoma at present General Exam Limitations: no limitations Course Vital Signs 07/26/22 18:23 Temperature 98 F Pulse Rate 132 H Respiratory 20 Rate Blood Pressure 160/92 O2 Sat by Pulse 99 Oximetry Medical Decision Making - Lab Data Result diagrams: 07/26/22 18:45 07/26/22 18:45 Lab Results 07/26/22 07/26/22 07/26/22 Range/Units 18:45 18:45 18:45 WBC 15.9 H (3.8-10.6) k/uL RBC 5.47 H (3.80-5.40) m/uL Hgb 17.1 H (11.4-16.0) gm/dL Hct 50.7 H (34.0-46.0) % MCV 92.8 (80.0-100.0) fL MCH 31.3 (25.0-35.0) pg MCHC 33.7 (31.0-37.0) g/dL RDW 13.3 (11.5-15.5) % Plt Count 359 (150-450) k/uL MPV 8.9 Neutrophils % 81 % Lymphocytes % 11 % Monocytes % 5 % Eosinophils % 1 % Basophils % 1 % Neutrophils # 12.9 H (1.3-7.7) k/uL Lymphocytes # 1.8 (1.0-4.8) k/uL Monocytes # 0.8 (0-1.0) k/uL Eosinophils # 0.1 (0-0.7) k/uL Basophils # 0.1 (0-0.2) k/uL Sodium 137 (137-145) mmol/L Potassium 3.4 L (3.5-5.1) mmol/L Chloride 100 (98-107) mmol/L Carbon Dioxide 16 L (22-30) mmol/L Anion Gap 21 mmol/L BUN 27 H (7-17) mg/dL Creatinine 1.08 H (0.52-1.04) mg/dL Est GFR (CKD-EPI)AfAm 64 (>60 ml/min/1.73 sqM) Est GFR (CKD-EPI)NonAf 55 (>60 ml/min/1.73 sqM) Glucose 176 H (74-99) mg/dL Plasma Lactic Acid Bhargav 2.0 (0.7-2.0) mmol/L Calcium 10.6 H (8.4-10.2) mg/dL Magnesium 2.0 (1.6-2.3) mg/dL Total Bilirubin 2.0 H (0.2-1.3) mg/dL AST 30 (14-36) U/L ALT 34 (4-34) U/L Alkaline Phosphatase 167 H (38-126) U/L Total Protein 8.9 H (6.3-8.2) g/dL Albumin 5.3 H (3.5-5.0) g/dL Influenza Type A (PCR) (Not Detectd) Influenza Type B (PCR) (Not Detectd) RSV (PCR) (Not Detectd) SARS-CoV-2 (PCR) (Not Detectd) 07/26/22 Range/Units 18:45 WBC (3.8-10.6) k/uL RBC (3.80-5.40) m/uL Hgb (11.4-16.0) gm/dL Hct (34.0-46.0) % MCV (80.0-100.0) fL MCH (25.0-35.0) pg MCHC (31.0-37.0) g/dL RDW (11.5-15.5) % Plt Count (150-450) k/uL MPV Neutrophils % % Lymphocytes % % Monocytes % % Eosinophils % % Basophils % % Neutrophils # (1.3-7.7) k/uL Lymphocytes # (1.0-4.8) k/uL Monocytes # (0-1.0) k/uL Eosinophils # (0-0.7) k/uL Basophils # (0-0.2) k/uL Sodium (137-145) mmol/L Potassium (3.5-5.1) mmol/L Chloride (98-107) mmol/L Carbon Dioxide (22-30) mmol/L Anion Gap mmol/L BUN (7-17) mg/dL Creatinine (0.52-1.04) mg/dL Est GFR (CKD-EPI)AfAm (>60 ml/min/1.73 sqM) Est GFR (CKD-EPI)NonAf (>60 ml/min/1.73 sqM) Glucose (74-99) mg/dL Plasma Lactic Acid Bhargav (0.7-2.0) mmol/L Calcium (8.4-10.2) mg/dL Magnesium (1.6-2.3) mg/dL Total Bilirubin (0.2-1.3) mg/dL AST (14-36) U/L ALT (4-34) U/L Alkaline Phosphatase (38-126) U/L Total Protein (6.3-8.2) g/dL Albumin (3.5-5.0) g/dL Influenza Type A (PCR) Not Detected (Not Detectd) Influenza Type B (PCR) Not Detected (Not Detectd) RSV (PCR) Not Detected (Not Detectd) SARS-CoV-2 (PCR) Not Detected (Not Detectd) Disposition Clinical Impression: Dehydration Disposition: ADMITTED IP TO THIS [facility] Condition: Serious Is patient prescribed a controlled substance at d/c from ED?: No Referrals: Cameron Toribio MD [STAFF PHYSICIAN] - 1-2 days
[2022-07-26 18:57] LABS: Basophils # (A) 0.1 k/uL (0-0.2); Basophils % (A) 1 %; Eosinophils # (A) 0.1 k/uL (0-0.7); Eosinophils % (A) 1 %; HCT 50.7 % (34.0-46.0); HGB 17.1 gm/dL (11.4-16.0); Lymphocytes # (A) 1.8 k/uL (1.0-4.8); Lymphocytes % (A) 11 %; MCH 31.3 pg (25.0-35.0); MCHC 33.7 g/dL (31.0-37.0); MCV 92.8 fL (80.0-100.0); Mean Platelet Volume 8.9; Monocytes # (A) 0.8 k/uL (0-1.0); Monocytes % (A) 5 %; Neutrophils # (A) 12.9 k/uL (1.3-7.7); Neutrophils % (A) 81 %; Platelet Count 359 k/uL (150-450); RBC 5.47 m/uL (3.80-5.40); RDW 13.3 % (11.5-15.5); WBC 15.9 k/uL (3.8-10.6)
[2022-07-26 19:07] LABS: Albumin 5.3 g/dL (3.5-5.0); Calcium 10.6 mg/dL (8.4-10.2); Potassium 3.4 mmol/L (3.5-5.1); Total Protein 8.9 g/dL (6.3-8.2)
[2022-07-26] MEDS ORDERED: METOCLOPRAMIDE 5 MG/ML 2 ML VIAL IVP STA (20:12)
[2022-07-26] MEDS ORDERED: ONDANSETRON 4 MG/2 ML VIAL IVP PRN (20:20)
[2022-07-26] MEDS ORDERED: NALOXONE 0.4 MG/ML 1 ML VIAL IV PRN (20:20)
[2022-07-26] MEDS ORDERED: METOCLOPRAMIDE 5 MG/ML 2 ML VIAL IVP PRN (21:31)
[2022-07-26] MEDS ORDERED: LORazepam 2 MG/ML INJ IV ONE (21:32)
[2022-07-27] MEDS ORDERED: FAMOTIDINE 20 MG/2 ML VIAL IV SCH (09:00)
[2022-07-27] MEDS: PANTOPRAZOLE 40 MG/10 ML VIAL IV SCH (09:07)
[2022-07-27] MEDS: LEVOTHYROXINE 25 MCG TAB PO SCH (09:08)
[2022-07-27] MEDS: HEPARIN SODIUM,PORCINE/PF 5,000 UNIT/0.5 ML SYRINGE SQ SCH ×2 (09:08→20:49)
[2022-07-27] MEDS: METOPROLOL SUCCINATE (ER) 50 MG TAB.ER.24H PO SCH (09:08)
[2022-07-27] MEDS ORDERED: hydrALAZINE HCL 25 MG TAB PO PRN (11:36)
--- NOTE | 2022-07-27 12:43 | P.HPIM ---
History of Present Illness This is a pleasant 61 years old female with past medical history of hypertension, hyperthyroidism, history of Crohn disease and follow-up with Dr. mojica at [facility] and history of left kidney stone and follow-up with the kidney Dr. [facility] as well Abdominal pain and diarrhea Patient states that last Saturday about 4-5 days ago she suffered from left flank pain similar to her kidney stone pain for which she took some pain medication and feel better by the evening. Next day she started having diarrhea and that is why she came to the hospital with nausea vomiting and diarrhea. She felt like she has exacerbation of her coronary disease however she denies blood in her stool. She has about 2-3 bouts of loose stool daily. Associated with vomiting twice yesterday and once this morning with no blood other than her stool or vomitus. Then abdominal pain is gone now, rated as 0/10 by her for her abdomen soft with very mild LLQ tenderness with no rebound tenderness or guarding. She denies chest pain or dyspnea, no headache or dizziness, no numbness or asymmetric weakness. Patient feels generally weak and malaise. No dysuria or urgency She had little dyspnea yesterday but she thinks resolved now. She has some dry cough with little phlegm but no chest pain Patient is afebrile on admission. Blood pressure is elevated 178/69 Labs showed leukocytosis of 15.9, elevated hemoglobin of 17.1 with platelet count normal at 359. Some multiple looks more concentrated BMP shown normal sodium 137 potassium 3.4. Creatinine is slightly elevated at 1.0. Baseline 0.7-0.8 AST and ALT are normal. C. diff is negative. Viruses are undetected including influenza type A and B, RSV and coronavirus EKG showing normal sinus rhythm at [address]-T changes. In the emergency room patient received normal saline, Zofran, Reglan and ativan. Review of Systems Review of systems CONSTITUTIONAL: No fever, no malaise, no fatigue. HEENT: No recent visual problems or hearing problems. Denied any sore throat. CARDIOVASCULAR: No orthopnea, PND, no palpitations, no syncope. PULMONARY: No shortness of breath, no cough, no hemoptysis. GASTROINTESTINAL: No constipation. Normoactive bowel sounds. NEUROLOGICAL: No headaches, no weakness, no numbness. HEMATOLOGICAL: Denies any bleeding or petechiae. GENITOURINARY: Denies any burning micturition, frequency, or urgency. MUSCULOSKELETAL/RHEUMATOLOGICAL: Denies any joint pain, swelling, or any muscle pain. ENDOCRINE: Denies any polyuria or polydipsia. Past Medical History Past Medical History: GERD/Reflux, Hypertension, Renal Disease Additional Past Medical History / Comment(s): Hx. cardiac cath after subcut kidney surgery oct 2011 Hx. Crohns History of Any Multi-Drug Resistant Organisms: ESBL Date of last positivie culture/infection: 04/02/20 MDRO Source:: URINE ESBL Past Surgical History: Bowel Resection, Heart Catheterization Additional Past Surgical History / Comment(s): Hx colostomy 1994-reversed since after 1 year. 2006 hernia rt lower abdomen()incisional) 2010- bowel resection, 2011-kidney sugery - subcut kidney surgery Past Psychological History: Anxiety Additional Psychological History / Comment(s): Hx. when pain was present Smoking Status: Never smoker Past Alcohol Use History: None Reported Past Drug Use History: Marijuana Additional Drug Use History / Comment(s): medical marijuana - Past Family History Father Family Medical History: Cancer, Prostate Disorder Sister(s) Family Medical History: Cancer Additional Family Medical History / Comment(s): One sister- cancer second sister -Diabetes Son(s) Family Medical History: Cancer Additional Family Medical History / Comment(s): Son-lymphoma at present Medications and Allergies Home Medications Medication Instructions Recorded Confirmed Type Levothyroxine Sodium [Synthroid] 25 mcg PO DAILY 03/29/14 07/26/22 History Metoprolol Succinate [Toprol XL] 50 mg PO DAILY 03/29/14 07/26/22 History Cyanocobalamin [Vitamin B-12 1,000 mcg SQ QMONTHLY 07/26/22 07/26/22 History Injection] Ustekinumab [Stelara] 90 mg SQ QMONTHLY 07/26/22 07/26/22 History Allergies Allergy/AdvReac Type Severity Reaction Status Date / Time erythromycin base Allergy Rash/Hives Verified 07/26/22 18:25 [Erythromycin Base] mesalamine [From Pentasa] Allergy Rash/Hives Verified 07/26/22 18:25 nifedipine [From Procardia] Allergy Rash/Hives Verified 07/26/22 18:25 Penicillins Allergy Rash/Hives Verified 07/26/22 18:25 Physical Exam Vitals: Vital Signs Temp Pulse Pulse Resp BP BP Pulse Ox 07/27/22 11:45 85 170/82 07/27/22 07:00 98.0 F 72 20 189/91 99 07/27/22 02:03 98.4 F 65 18 178/69 99 07/26/22 22:41 98.4 F 82 17 172/75 98 07/26/22 21:43 69 18 99 07/26/22 21:38 98.3 F 77 18 182/84 99 07/26/22 20:21 98.3 F 92 22 189/106 98 07/26/22 18:23 98 F 132 H 20 160/92 99 Intake and Output 07/26/22 07/27/22 07/27/22 22:59 06:59 14:59 Other: Voiding Method Toilet Toilet Diaper Diaper # Voids 0 2 Weight 43.091 kg GENERAL: The patient is alert and oriented x3, not in any acute distress. Well developed, well nourished. HEENT: Pupils are round and equally reacting to light. EOMI. No scleral icterus. No conjunctival pallor. Normocephalic, atraumatic. No pharyngeal erythema. No thyromegaly. CARDIOVASCULAR: S1 and S2 present. No murmurs, rubs, or gallops. PULMONARY: Chest is clear to auscultation, no wheezing or crackles. -ABDOMEN: Soft, that it might LLQ tenderness with no guarding or rebound tenderness, nondistended, normoactive bowel sounds. No palpable organomegaly. MUSCULOSKELETAL: No joint swelling or deformity. EXTREMITIES: No cyanosis, clubbing, or pedal edema. NEUROLOGICAL: Gross neurological examination did not reveal any focal deficits. SKIN: No rashes. no petechiae. Results CBC & Chem 7: 07/26/22 18:45 07/26/22 18:45 Labs: Abnormal Lab Results - Last 24 Hours (Table) 07/26/22 07/26/22 Range/Units 18:45 18:45 WBC 15.9 H (3.8-10.6) k/uL RBC 5.47 H (3.80-5.40) m/uL Hgb 17.1 H (11.4-16.0) gm/dL Hct 50.7 H (34.0-46.0) % Neutrophils # 12.9 H (1.3-7.7) k/uL Potassium 3.4 L (3.5-5.1) mmol/L Carbon Dioxide 16 L (22-30) mmol/L BUN 27 H (7-17) mg/dL Creatinine 1.08 H (0.52-1.04) mg/dL Glucose 176 H (74-99) mg/dL Calcium 10.6 H (8.4-10.2) mg/dL Total Bilirubin 2.0 H (0.2-1.3) mg/dL Alkaline Phosphatase 167 H (38-126) U/L Total Protein 8.9 H (6.3-8.2) g/dL Albumin 5.3 H (3.5-5.0) g/dL Microbiology - Last 24 Hours (Table) 07/26/22 19:51 Stool Culture - Preliminary Stool Assessment and Plan Assessment: Possible acute gastroenteritis. She has history of Crohn's disease so we'll check inflammatory markers Nausea vomiting secondary to above Acute kidney injury, mild most likely prerenal secondary to above history of Crohn disease and follow-up with Dr. mojica at [facility] history of left kidney stone and follow-up with the kidney Dr. [facility] as well Hypertension Hypothyroidism Plan: This is a pleasant 61 years old female with possible acute gastroenteritis Continue with bowel rest and advanced diet as tolerated Pain management Maintain the fluids Check PROcalcitonin, inflammatory markers ESR and CRP and monitor labs Labs and medication were reviewed.. Continue same treatment. Continue with symptomatic treatment. Resume home medication. Monitor lytes and vitals. DVT and GI prophylaxis. Further recommendations as per clinical course of the patient DVT prophylaxis: Subcutaneous heparin GI Prophylaxis: Ppi PT/OT: Pending Prognosis is guarded
[2022-07-27 12:59] LABS: Basophils % (A) 0 %; Eosinophils % (A) 0 %; HCT 43.8 % (34.0-46.0); HGB 14.4 gm/dL (11.4-16.0); Lymphocytes # (A) 1.6 k/uL (1.0-4.8); Lymphocytes % (A) 15 %; MCH 31.3 pg (25.0-35.0); MCHC 32.9 g/dL (31.0-37.0); MCV 95.1 fL (80.0-100.0); Mean Platelet Volume 8.2; Monocytes # (A) 0.7 k/uL (0-1.0); Monocytes % (A) 7 %; Neutrophils # (A) 7.8 k/uL (1.3-7.7); Neutrophils % (A) 75 %; Platelet Count 261 k/uL (150-450); RBC 4.61 m/uL (3.80-5.40); RDW 12.9 % (11.5-15.5); WBC 10.5 k/uL (3.8-10.6)
[2022-07-27 13:15] LABS: ALT 25 U/L (4-34); AST 29 U/L (14-36); African American GFR (CKD) >90 (>60 ml/min/1.73 sqM); Albumin/Globulin Ratio 1.4; Alkaline Phosphatase 109 U/L (38-126); Anion Gap 11 mmol/L; Bilirubin,Unconjugated 1.3 mg/dL (0.0-1.1); Blood Urea Nitrogen 14 mg/dL (7-17); C Reactive Protein <0.5 mg/dL (<1.0); Calcium 8.8 mg/dL (8.4-10.2); Carbon Dioxide 19 mmol/L (22-30); Chloride 108 mmol/L (98-107); Globulin 2.8 g/dL; Glucose 111 mg/dL (74-99); Non-African American GFR(CKD) >90 (>60 ml/min/1.73 sqM); Potassium 3.1 mmol/L (3.5-5.1); Sodium 138 mmol/L (137-145); Total Bilirubin 1.4 mg/dL (0.2-1.3); Total Protein 6.8 g/dL (6.3-8.2)
[2022-07-27 13:17] LABS: Appearance,Urine Clear (Clear); Bilirubin,Urine Negative (Negative); Blood,Urine Moderate (Negative); Color,Urine Light Yellow; Glucose,Urine (UA) Negative (Negative); Ketones,Urine Negative (Negative); Leukocyte Esterase,Urine Negative (Negative); Mucus,Urine Rare /hpf; Nitrite,Urine Negative (Negative); Protein,Urine 1+ (Negative); RBC,Urine 22 /hpf (0-5); Squamous Epithelial Cell,Urine 1 /hpf (0-4); Urobilinogen,Urine <2.0 mg/dL (<2.0); WBC,Urine 7 /hpf (0-5)
--- NOTE | 2022-07-27 13:31 | XR ---
EXAMINATION TYPE: XR chest 2V DATE OF EXAM: 07/27/2022 COMPARISON: NONE HISTORY: Shortness of breath TECHNIQUE: Frontal and lateral views of the chest are obtained. FINDINGS: There is no focal air space opacity, pleural effusion, or pneumothorax seen. The cardiac silhouette size is within normal limits. The osseous structures are intact. IMPRESSION: No acute cardiopulmonary process.
[2022-07-27] MEDS: ACETAMINOPHEN TAB 500 MG TAB PO PRN ×2 (16:06→22:05)
[2022-07-27] MEDS ORDERED: Potassium Replacement Protocol 1 EACH MISC MISCELLANE PRN ×2 (18:35→20:29)
[2022-07-27] MEDS: POTASSIUM CHLORIDE ER 20 MEQ TAB.ER PO SCH ×2 (20:50→22:05)
[2022-07-27] MEDS ORDERED: MELATONIN 3 MG TABLET PO STA (23:58)
[2022-07-28] MEDS ORDERED: Potassium Replacement Protocol 1 EACH MISC MISCELLANE PRN (01:30)
[2022-07-28] MEDS: POTASSIUM CHLORIDE ER 20 MEQ TAB.ER PO SCH ×2 (01:47→02:38)
[2022-07-28] MEDS: LEVOTHYROXINE 25 MCG TAB PO SCH (05:53)
[2022-07-28] MEDS: ACETAMINOPHEN TAB 500 MG TAB PO PRN ×2 (06:01→18:27)
[2022-07-28] MEDS: HEPARIN SODIUM,PORCINE/PF 5,000 UNIT/0.5 ML SYRINGE SQ SCH ×2 (08:48→19:54)
[2022-07-28] MEDS: PANTOPRAZOLE 40 MG/10 ML VIAL IV SCH (08:49)
[2022-07-28] MEDS: hydrALAZINE HCL 50 MG TAB PO SCH ×2 (08:49→19:54)
[2022-07-28] MEDS: METOPROLOL SUCCINATE (ER) 50 MG TAB.ER.24H PO SCH (08:50)
[2022-07-28 08:59] LABS: Basophils # (A) 0.06 X 10*3/uL (0.00-0.10); Basophils % (A) 0.6 %; Eosinophils # (A) 0.01 X 10*3/uL (0.04-0.35); Eosinophils % (A) 0.1 %; HCT 42.7 % (37.2-46.3); HGB 14.4 g/dL (12.0-15.0); Immature Grans, Automated 0.4 %; Lymphocytes # (A) 2.21 X 10*3/uL (0.90-5.00); Lymphocytes % (A) 20.6 %; MCH 31.1 pg (27.0-32.0); MCHC 33.7 g/dL (32.0-37.0); MCV 92.2 fL (80.0-97.0); Mean Platelet Volume 11.1 fL (9.5-12.2); Monocytes # (A) 1.11 X 10*3/uL (0.20-1.00); Monocytes % (A) 10.3 %; NRBC Per 100 WBC 0 /100 WBCS (0.0-0.0); Neutrophils # (A) 7.31 X 10*3/uL (1.80-7.70); Platelet Count 284 X 10*3/uL (140-440); RBC 4.63 X 10*6/uL (4.10-5.20); RDW 13.1 % (11.5-14.5); WBC 10.74 X 10*3/uL (4.50-10.00)
[2022-07-28 09:00] LABS: African American GFR (CKD) 113.2 (60.0-200.0); Anion Gap 12.8 mmol/L (10.00-18.00); BUN/Creat Ratio 11.33 Ratio (12.00-20.00); Blood Urea Nitrogen 6.8 mg/dL (9.0-27.0); Calcium 8.7 mg/dL (8.7-10.3); Carbon Dioxide 21.2 mmol/L (20.0-27.5); Magnesium 1.9 mg/dL (1.5-2.4); Non-African American GFR(CKD) 97.7 (60.0-200.0); Potassium 3.4 mmol/L (3.5-5.5)
[2022-07-28 09:49] LABS: Erythrocyte Sedimentation Rate 34 mm/Hr (0-30)
[2022-07-28] MEDS ORDERED: hydrOXYzine HCL 25 MG TAB PO PRN (12:47)
[2022-07-28] MEDS ORDERED: SODIUM CHLORIDE 0.9% 1,000 ML IV SCH (14:30)
[2022-07-28 15:34] LABS: Appearance,Urine Clear (Clear); Bilirubin,Urine Negative (Negative); Blood,Urine Negative (Negative); Color,Urine Light Yellow; Glucose,Urine (UA) Negative (Negative); Ketones,Urine Negative (Negative); Leukocyte Esterase,Urine Negative (Negative); Nitrite,Urine Negative (Negative); Protein,Urine Negative (Negative); Specific Gravity,Urine 1.006 (1.001-1.035); Urobilinogen,Urine <2.0 mg/dL (<2.0)
--- NOTE | 2022-07-28 18:45 | P.PN ---
Subjective This is a pleasant 61 years old female with past medical history of hypertension, hyperthyroidism, history of Crohn disease and follow-up with Dr. quita fournier at [facility] and history of left kidney stone and follow-up with the kidney Dr. [facility] as well Abdominal pain and diarrhea Patient states that last Saturday about 4-5 days ago she suffered from left flank pain similar to her kidney stone pain for which she took some pain medication and feel better by the evening. Next day she started having diarrhea and that is why she came to the hospital with nausea vomiting and diarrhea. She felt like she has exacerbation of her coronary disease however she denies blood in her stool. She has about 2-3 bouts of loose stool daily. Associated with vomiting twice yesterday and once this morning with no blood other than her stool or vomitus. Then abdominal pain is gone now, rated as 0/10 by her for her abdomen soft with very mild LLQ tenderness with no rebound tenderness or guarding. She denies chest pain or dyspnea, no headache or dizziness, no numbness or asymmetric weakness. Patient feels generally weak and malaise. No dysuria or urgency She had little dyspnea yesterday but she thinks resolved now. She has some dry cough with little phlegm but no chest pain Patient is afebrile on admission. Blood pressure is elevated 178/69 Labs showed leukocytosis of 15.9, elevated hemoglobin of 17.1 with platelet count normal at 359. Some multiple looks more concentrated BMP shown normal sodium 137 potassium 3.4. Creatinine is slightly elevated at 1.0. Baseline 0.7-0.8 AST and ALT are normal. C. diff is negative. Viruses are undetected including influenza type A and B, RSV and coronavirus EKG showing normal sinus rhythm at [address]-T changes. In the emergency room patient received normal saline, Zofran, Reglan and ativan. 07/28/2022 Patient is tolerating liquid diet and asked him to be advanced to regular diet, she states that liquid foods and oral potassium hurts her stomach, patient was advised to use fluids like banana and she is agreeable and will bring her more fluid. No abdominal pain, she had watery bowel movements but slightly better compared to yesterday. Today patient started developing mild leukocytosis of 10.7 and also low-grade fever of 9.9. Therefore going to start the patient empirically on oral Levaquin and Flagyl, and antibiotic limited by her ALLERGY profile. Stool culture are still pending. IV fluids were stopped. CRP is normal and ESR only mildly elevated, makes Crohn's is less likely. Objective - Vital Signs Vital signs: Vital Signs Temp 99 F 07/28/22 07:00 Pulse 73 07/28/22 07:00 Resp 16 07/28/22 08:48 BP 154/80 07/28/22 07:00 Pulse Ox 96 07/28/22 07:00 FiO2 Intake & Output 07/27/22 07/28/22 07/28/22 18:59 06:59 18:59 Intake Total 240 118 Balance 240 118 Intake: Oral 240 118 Other: Voiding Method Toilet Toilet # Voids 1 5 # Bowel Movements 1 2 - Exam -GENERAL: The patient is alert and oriented x3, not in any acute distress. Well developed, well nourished. Lethargic HEENT: Pupils are round and equally reacting to light. EOMI. No scleral icterus. No conjunctival pallor. Normocephalic, atraumatic. No pharyngeal erythema. No thyromegaly. CARDIOVASCULAR: S1 and S2 present. No murmurs, rubs, or gallops. PULMONARY: Chest is clear to auscultation, no wheezing or crackles. -ABDOMEN: Soft, Mild LLQ tenderness, resolved , nondistended, normoactive bowel sounds. No palpable organomegaly. MUSCULOSKELETAL: No joint swelling or deformity. EXTREMITIES: No cyanosis, clubbing, or pedal edema. NEUROLOGICAL: Gross neurological examination did not reveal any focal deficits. SKIN: No rashes. no petechiae. - Labs CBC & Chem 7: 07/28/22 05:28 07/28/22 05:28 Labs: Abnormal Lab Results - Last 24 Hours (Table) 07/27/22 07/27/22 07/27/22 Range/Units 10:30 12:40 12:40 WBC (4.50-10.00) X 10*3/uL Neutrophils # 7.8 H (1.3-7.7) k/uL Monocytes # (0.20-1.00) X 10*3/uL Eosinophils # (0.04-0.35) X 10*3/uL ESR (0-30) mm/Hr Potassium 3.1 L (3.5-5.1) mmol/L Chloride 108 H (98-107) mmol/L Carbon Dioxide 19 L (22-30) mmol/L BUN (9.0-27.0) mg/dL BUN/Creatinine Ratio (12.00-20.00) Ratio Glucose 111 H (74-99) mg/dL Total Bilirubin 1.4 H (0.2-1.3) mg/dL Unconjugated Bilirubin 1.3 H (0.0-1.1) mg/dL Urine Protein 1+ H (Negative) Urine Blood Moderate H (Negative) Urine RBC 22 H (0-5) /hpf Urine WBC 7 H (0-5) /hpf Urine Mucus Rare H (None) /hpf 07/27/22 07/28/22 07/28/22 Range/Units 23:51 05:28 05:28 WBC 10.74 H (4.50-10.00) X 10*3/uL Neutrophils # (1.3-7.7) k/uL Monocytes # 1.11 H (0.20-1.00) X 10*3/uL Eosinophils # 0.01 L (0.04-0.35) X 10*3/uL ESR 34 H (0-30) mm/Hr Potassium 3.0 L 3.4 L (3.5-5.1) mmol/L Chloride (98-107) mmol/L Carbon Dioxide (22-30) mmol/L BUN 6.8 L (9.0-27.0) mg/dL BUN/Creatinine Ratio 11.33 L (12.00-20.00) Ratio Glucose 116 H (74-99) mg/dL Total Bilirubin (0.2-1.3) mg/dL Unconjugated Bilirubin (0.0-1.1) mg/dL Urine Protein (Negative) Urine Blood (Negative) Urine RBC (0-5) /hpf Urine WBC (0-5) /hpf Urine Mucus (None) /hpf Assessment and Plan Assessment: Possible acute gastroenteritis. Rule out bacterial gastroenteritis Mild sepsis with mild fever and leukocytosis Nausea vomiting secondary to above Acute kidney injury, mild most likely prerenal secondary to above history of Crohn disease and follow-up with Dr. mojica at [facility] history of left kidney stone and follow-up with the kidney Dr. [facility] as well Hypertension Hypothyroidism Plan: This is a pleasant 61 years old female with possible acute gastroenteritis start Flagyl and Levaquin in view of mild sepsis advance to regular diet per patient request Discontinue IV fluids There is no GI coverage in this facility and patient was to send his fertility and continue to receive care here Labs and medication were reviewed.. Continue same treatment. Continue with symptomatic treatment. Resume home medication. Monitor lytes and vitals. DVT and GI prophylaxis. Further recommendations as per clinical course of the patient DVT prophylaxis: Subcutaneous heparin GI Prophylaxis: Ppi Prognosis is guarded
[2022-07-28] MEDS: ALPRAZolam 0.25 MG TAB PO PRN (19:54)
[2022-07-28] MEDS: LEVOFLOXACIN 500 MG TAB PO SCH (19:54)
[2022-07-28] MEDS: TEMAZEPAM 7.5 MG CAP PO PRN (22:12)
[2022-07-28] MEDS: metroNIDAZOLE 500 MG TAB PO SCH (22:12)
[2022-07-29] MEDS: LEVOTHYROXINE 25 MCG TAB PO SCH (05:29)
[2022-07-29] MEDS: hydrALAZINE HCL 50 MG TAB PO SCH (07:38)
[2022-07-29] MEDS: metroNIDAZOLE 500 MG TAB PO SCH ×3 (07:39→20:07)
[2022-07-29] MEDS: PANTOPRAZOLE 40 MG/10 ML VIAL IV SCH (07:39)
[2022-07-29] MEDS: HEPARIN SODIUM,PORCINE/PF 5,000 UNIT/0.5 ML SYRINGE SQ SCH ×2 (07:40→20:09)
[2022-07-29] MEDS: METOPROLOL SUCCINATE (ER) 50 MG TAB.ER.24H PO SCH (07:40)
--- NOTE | 2022-07-29 11:22 | CT ---
EXAMINATION TYPE: CT abdomen pelvis w con DATE OF EXAM: 07/29/2022 COMPARISON: CT 04/03/2020 HISTORY: Abdominal pain, diarrhea, fever, history of Crohns disease CT DLP: 113.2 mGycm Automated exposure control for dose reduction was used. TECHNIQUE: Helical acquisition of images from the lung bases through the pelvis have been completed. CONTRAST: Performed with Oral Contrast and with IV Contrast, patient injected with 100 ml mL of Isovue 300. FINDINGS: There are anterior midline abdominal wall hernias containing fat between the umbilicus and side plate, at least 3 in number. Right inguinal hernia contains fat. LUNG BASES: Probable basilar atelectatic changes are present at the posterior costophrenic angles. AORTA: No significant abnormality is appreciated. LIVER/GB: There are gallstones within the gallbladder, increased density about the lumbar contents wi thin the gallbladder may represent tumefactive sludge, gallstone is present within the gallbladder ne ck. No evident gallbladder wall thickening or pericholecystic fluid, liver is stable. Liver shows low attenuation likely due to hepatic steatosis. PANCREAS: No significant abnormality is seen. SPLEEN: No significant abnormality is seen. ADRENALS: No significant abnormality is seen. KIDNEYS: No significant change is seen, small nonobstructive calculus present at the upper pole the r ight kidney. REPRODUCTIVE ORGANS: No significant abnormality is seen BOWEL: Postop changes are present. There is a sizable pouch along the suture line containing fluid w hich is increased in size compared to prior CT. Thickening of the colonic wall could be due to underl nori colitis. There is also thickening along the small bowel wall possibly indicative of enteritis. N o evident abscess. FREE AIR: No Free Air visible. ASCITES: None visible. PELVIC ADENOPATHY: None visualized. RETROPERITONEAL ADENOPATHY: No Retroperitoneal Adenopathy visible. URINARY BLADDER: No significant abnormality is seen. OSSEOUS STRUCTURES: Degenerative disc changes in the lumbosacral spine. There is a spinal curvature. IMPRESSION: NONSPECIFIC FINDINGS INVOLVING THE SMALL AND LARGE BOWEL, POUCH CONTAINING FLUID CORRELATE WITH PATIE NT'S SURGICAL HISTORY. ADDITIONAL FINDINGS ABOVE.
[2022-07-29] MEDS: SODIUM CHLORIDE 0.9% 1,000 ML IV SCH ×2 (16:00→20:07)
--- NOTE | 2022-07-29 18:11 | P.PN ---
Subjective This is a pleasant 61 years old female with past medical history of hypertension, hyperthyroidism, history of Crohn disease and follow-up with Dr. quita fournier at [facility] and history of left kidney stone and follow-up with the kidney Dr. [facility] as well Abdominal pain and diarrhea Patient states that last Saturday about 4-5 days ago she suffered from left flank pain similar to her kidney stone pain for which she took some pain medication and feel better by the evening. Next day she started having diarrhea and that is why she came to the hospital with nausea vomiting and diarrhea. She felt like she has exacerbation of her coronary disease however she denies blood in her stool. She has about 2-3 bouts of loose stool daily. Associated with vomiting twice yesterday and once this morning with no blood other than her stool or vomitus. Then abdominal pain is gone now, rated as 0/10 by her for her abdomen soft with very mild LLQ tenderness with no rebound tenderness or guarding. She denies chest pain or dyspnea, no headache or dizziness, no numbness or asymmetric weakness. Patient feels generally weak and malaise. No dysuria or urgency She had little dyspnea yesterday but she thinks resolved now. She has some dry cough with little phlegm but no chest pain Patient is afebrile on admission. Blood pressure is elevated 178/69 Labs showed leukocytosis of 15.9, elevated hemoglobin of 17.1 with platelet count normal at 359. Some multiple looks more concentrated BMP shown normal sodium 137 potassium 3.4. Creatinine is slightly elevated at 1.0. Baseline 0.7-0.8 AST and ALT are normal. C. diff is negative. Viruses are undetected including influenza type A and B, RSV and coronavirus EKG showing normal sinus rhythm at [address]-T changes. In the emergency room patient received normal saline, Zofran, Reglan and ativan. 07/28/2022 Patient is tolerating liquid diet and asked him to be advanced to regular diet, she states that liquid foods and oral potassium hurts her stomach, patient was advised to use fluids like banana and she is agreeable and will bring her more fluid. No abdominal pain, she had watery bowel movements but slightly better compared to yesterday. Today patient started developing mild leukocytosis of 10.7 and also low-grade fever of 9.9. Therefore going to start the patient empirically on oral Levaquin and Flagyl, and antibiotic limited by her ALLERGY profile. Stool culture are still pending. IV fluids were stopped. CRP is normal and ESR only mildly elevated, makes Crohn's is less likely. 07/29/2022 Patient feels better, she is happy she slipped well more than 6 hours last night. She still complaining of from watery diarrhea once a day, no abdominal pain but she has mild right lower quadrant tenderness that this lasted only for a few minutes. Patient states she is eating well. Patient had low-grade fever 99.9 and mild leukocytosis yesterday. Patient agrees with antibiotic Flagyl and Levaquin. CT of the abdomen and pelvis with IV contrast and no oral contrast [patient declined oral contrast] after risks of nephrotoxicity is explained to her e xtensively. Patient has gallstones within the gallbladder, possible sludge and gallbladder neck stone. No evidence of gallbladder wall thickening. Bowel: Postoperative changes, there is sizable bulge along the suture line containing fluid which is increasing in size compared to prior CT. Thickening of the colonic wall could be due to underlying colitis. There is also thickening along the small bowel possibly indicative of enteritis. No evident abscess. Objective - Vital Signs Vital signs: Vital Signs Temp 98.6 F 07/29/22 13:38 Pulse 88 07/29/22 13:38 Resp 16 07/29/22 13:38 BP 119/73 07/29/22 13:38 Pulse Ox 95 07/29/22 13:38 FiO2 Intake & Output 07/28/22 07/29/22 07/29/22 18:59 06:59 18:59 Intake Total 718 720 Balance 718 720 Intake: Oral 718 720 Other: Voiding Method Toilet Toilet Toilet # Voids 3 2 2 # Bowel Movements 2 1 - Exam -GENERAL: The patient is alert and oriented x3, not in any acute distress. Well developed, well nourished. Lethargic HEENT: Pupils are round and equally reacting to light. EOMI. No scleral icterus. No conjunctival pallor. Normocephalic, atraumatic. No pharyngeal erythema. No thyromegaly. CARDIOVASCULAR: S1 and S2 present. No murmurs, rubs, or gallops. PULMONARY: Chest is clear to auscultation, no wheezing or crackles. -ABDOMEN: Soft, Mild LLQ tenderness, resolved , nondistended, normoactive bowel sounds. No palpable organomegaly. MUSCULOSKELETAL: No joint swelling or deformity. EXTREMITIES: No cyanosis, clubbing, or pedal edema. NEUROLOGICAL: Gross neurological examination did not reveal any focal deficits. SKIN: No rashes. no petechiae. - Labs CBC & Chem 7: 07/28/22 05:28 07/28/22 05:28 Assessment and Plan Assessment: Possible acute colitis and possible enteritis. Mostly secondary to bacterial gastroenteritis Mild sepsis with mild fever and leukocytosis Gallbladder disease with gallstones and possible sludge. No wall thickening Nausea vomiting secondary to above Acute kidney injury, mild most likely prerenal secondary to above history of Crohn disease and follow-up with Dr. mojica at [facility] history of left kidney stone and follow-up with the kidney Dr. [facility] as well Hypertension Hypothyroidism Plan: This is a pleasant 61 years old female with possible acute gastroenteritis Continue with Flagyl and Levaquin in view of mild sepsis advance to regular diet per patient request Restart IV fluids consult GI service tomorrow for possible coverage per staff Labs and medication were reviewed.. Continue same treatment. Continue with symptomatic treatment. Resume home medication. Monitor lytes and vitals. DVT and GI prophylaxis. Further recommendations as per clinical course of the patient DVT prophylaxis: Subcutaneous heparin GI Prophylaxis: Ppi Prognosis is guarded
[2022-07-29] MEDS: ALPRAZolam 0.25 MG TAB PO PRN (20:06)
[2022-07-29] MEDS: LEVOFLOXACIN 500 MG TAB PO SCH (20:07)
[2022-07-29] MEDS: TEMAZEPAM 7.5 MG CAP PO PRN (22:15)
[2022-07-30] MEDS: hydrALAZINE HCL 50 MG TAB PO SCH ×3 (03:06→22:10)
[2022-07-30] MEDS: ACETAMINOPHEN TAB 500 MG TAB PO PRN ×2 (04:43→12:42)
[2022-07-30] MEDS: LEVOTHYROXINE 25 MCG TAB PO SCH (04:46)
[2022-07-30] MEDS: ALPRAZolam 0.25 MG TAB PO PRN ×2 (04:53→20:07)
[2022-07-30] MEDS: HEPARIN SODIUM,PORCINE/PF 5,000 UNIT/0.5 ML SYRINGE SQ SCH ×2 (08:44→20:09)
[2022-07-30] MEDS: metroNIDAZOLE 500 MG TAB PO SCH ×3 (08:45→20:08)
[2022-07-30] MEDS: PANTOPRAZOLE 40 MG/10 ML VIAL IV SCH (08:45)
[2022-07-30] MEDS: METOPROLOL SUCCINATE (ER) 50 MG TAB.ER.24H PO SCH (08:45)
[2022-07-30 12:09] LABS: Magnesium 1.6 mg/dL (1.5-2.4)
[2022-07-30 12:22] LABS: ALT 29 U/L (8-44); AST 24 U/L (13-35); African American GFR (CKD) 101.6 (60.0-200.0); Albumin 3.3 g/dL (3.8-4.9); Albumin/Globulin Ratio 1.73 (1.60-3.17); Alkaline Phosphatase 85 U/L (41-126); BUN/Creat Ratio 14.03 Ratio (12.00-20.00); Bilirubin, Conjugated <0.20 mg/dL (0.20-0.40); Blood Urea Nitrogen 10.3 mg/dL (9.0-27.0); Calcium 8.3 mg/dL (8.7-10.3); Chloride 109 mmol/L (96-109); Globulin 1.9 g/dL (1.6-3.3); Glucose 99 mg/dL (70-110); Non-African American GFR(CKD) 87.7 (60.0-200.0); Potassium 2.7 mmol/L (3.5-5.5); Sodium 139 mmol/L (135-145); Total Protein 5.3 g/dL (6.2-8.2)
[2022-07-30 12:26] LABS: HCT 37.7 % (37.2-46.3); MCH 30.8 pg (27.0-32.0); MCHC 31.8 g/dL (32.0-37.0); MCV 96.9 fL (80.0-97.0); Mean Platelet Volume 11.7 fL (9.5-12.2); NRBC Per 100 WBC 0 /100 WBCS (0.0-0.0); Platelet Count 144 X 10*3/uL (140-440); RBC 3.89 X 10*6/uL (4.10-5.20); RDW 13.2 % (11.5-14.5); WBC 7.11 X 10*3/uL (4.50-10.00)
[2022-07-30] MEDS ORDERED: Potassium Replacement Protocol 1 EACH MISC MISCELLANE PRN (12:28)
--- NOTE | 2022-07-30 12:31 | P.PN ---
Subjective This is a pleasant 61 years old female with past medical history of hypertension, hyperthyroidism, history of Crohn disease and follow-up with Dr. quita fournier at [facility] and history of left kidney stone and follow-up with the kidney Dr. [facility] as well Abdominal pain and diarrhea Patient states that last Saturday about 4-5 days ago she suffered from left flank pain similar to her kidney stone pain for which she took some pain medication and feel better by the evening. Next day she started having diarrhea and that is why she came to the hospital with nausea vomiting and diarrhea. She felt like she has exacerbation of her coronary disease however she denies blood in her stool. She has about 2-3 bouts of loose stool daily. Associated with vomiting twice yesterday and once this morning with no blood other than her stool or vomitus. Then abdominal pain is gone now, rated as 0/10 by her for her abdomen soft with very mild LLQ tenderness with no rebound tenderness or guarding. She denies chest pain or dyspnea, no headache or dizziness, no numbness or asymmetric weakness. Patient feels generally weak and malaise. No dysuria or urgency She had little dyspnea yesterday but she thinks resolved now. She has some dry cough with little phlegm but no chest pain Patient is afebrile on admission. Blood pressure is elevated 178/69 Labs showed leukocytosis of 15.9, elevated hemoglobin of 17.1 with platelet count normal at 359. Some multiple looks more concentrated BMP shown normal sodium 137 potassium 3.4. Creatinine is slightly elevated at 1.0. Baseline 0.7-0.8 AST and ALT are normal. C. diff is negative. Viruses are undetected including influenza type A and B, RSV and coronavirus EKG showing normal sinus rhythm at [address]-T changes. In the emergency room patient received normal saline, Zofran, Reglan and ativan. 07/28/2022 Patient is tolerating liquid diet and asked him to be advanced to regular diet, she states that liquid foods and oral potassium hurts her stomach, patient was advised to use fluids like banana and she is agreeable and will bring her more fluid. No abdominal pain, she had watery bowel movements but slightly better compared to yesterday. Today patient started developing mild leukocytosis of 10.7 and also low-grade fever of 9.9. Therefore going to start the patient empirically on oral Levaquin and Flagyl, and antibiotic limited by her ALLERGY profile. Stool culture are still pending. IV fluids were stopped. CRP is normal and ESR only mildly elevated, makes Crohn's is less likely. 07/29/2022 Patient feels better, she is happy she slipped well more than 6 hours last night. She still complaining of from watery diarrhea once a day, no abdominal pain but she has mild right lower quadrant tenderness that this lasted only for a few minutes. Patient states she is eating well. Patient had low-grade fever 99.9 and mild leukocytosis yesterday. Patient agrees with antibiotic Flagyl and Levaquin. CT of the abdomen and pelvis with IV contrast and no oral contrast [patient declined oral contrast] after risks of nephrotoxicity is explained to her e xtensively. Patient has gallstones within the gallbladder, possible sludge and gallbladder neck stone. No evidence of gallbladder wall thickening. Bowel: Postoperative changes, there is sizable bulge along the suture line containing fluid which is increasing in size compared to prior CT. Thickening of the colonic wall could be due to underlying colitis. There is also thickening along the small bowel possibly indicative of enteritis. No evident abscess. 07/30/2022 Patient still have diarrhea about 5-6 times yesterday and 3 this morning and still watery. No significant vomiting or abdominal pain. Hemodynamically stable. Pro-calcitonin is trending up ESR slightly elevated. CRP was normal. CT of the abdomen and pelvis showing enteritis and colitis She had mild right upper quadrant discomfort. She states she has chronic gallstone. We will consult GI service and check liver ultrasound Objective - Vital Signs Vital signs: Vital Signs Temp 98.4 F 07/30/22 07:00 Pulse 85 07/30/22 07:00 Resp 18 07/30/22 07:00 BP 122/74 07/30/22 07:00 Pulse Ox 97 07/30/22 07:00 FiO2 Intake & Output 07/29/22 07/30/22 07/30/22 18:59 06:59 18:59 Intake Total 720 Balance 720 Intake: Oral 720 Other: Voiding Method Toilet Toilet # Voids 2 2 # Bowel Movements 1 - Exam -GENERAL: The patient is alert and oriented x3, not in any acute distress. Well developed, well nourished. Lethargic HEENT: Pupils are round and equally reacting to light. EOMI. No scleral icterus. No conjunctival pallor. Normocephalic, atraumatic. No pharyngeal erythema. No thyromegaly. CARDIOVASCULAR: S1 and S2 present. No murmurs, rubs, or gallops. PULMONARY: Chest is clear to auscultation, no wheezing or crackles. -ABDOMEN: Soft, Mild LLQ tenderness, resolved , nondistended, normoactive bowel sounds. No palpable organomegaly. MUSCULOSKELETAL: No joint swelling or deformity. EXTREMITIES: No cyanosis, clubbing, or pedal edema. NEUROLOGICAL: Gross neurological examination did not reveal any focal deficits. SKIN: No rashes. no petechiae. - Labs CBC & Chem 7: 07/30/22 06:20 07/30/22 06:20 Labs: Abnormal Lab Results - Last 24 Hours (Table) 07/30/22 07/30/22 07/30/22 Range/Units 06:20 06:20 06:20 RBC 3.89 L (4.10-5.20) X 10*6/uL MCHC 31.8 L (32.0-37.0) g/dL Potassium 2.7 L* (3.5-5.5) mmol/L Carbon Dioxide 18.0 L (20.0-27.5) mmol/L Calcium 8.3 L (8.7-10.3) mg/dL Conjugated Bilirubin <0.20 L (0.20-0.40) mg/dL Total Protein 5.3 L (6.2-8.2) g/dL Albumin 3.3 L (3.8-4.9) g/dL Procalcitonin 0.10 H (0.02-0.09) ng/mL Microbiology - Last 24 Hours (Table) 07/26/22 19:51 Stool Culture - Final Stool Assessment and Plan Assessment: Possible acute colitis and possible enteritis. Mostly secondary to bacterial gastroenteritis Mild sepsis with mild fever and leukocytosis Gallbladder disease with gallstones and possible sludge. No wall thickening Nausea vomiting secondary to above Acute kidney injury, mild most likely prerenal secondary to above history of Crohn disease and follow-up with Dr. mojica at [facility] history of left kidney stone and follow-up with the kidney Dr. [facility] as well Hypertension Hypothyroidism Plan: This is a pleasant 61 years old female with possible acute gastroenteritis Continue with Flagyl and Levaquin in view of mild sepsis advance to regular diet per patient request Restart IV fluids consult GI service Labs and medication were reviewed.. Continue same treatment. Continue with symptomatic treatment. Resume home medication. Monitor lytes and vitals. DVT and GI prophylaxis. Further recommendations as per clinical course of the patient DVT prophylaxis: Subcutaneous heparin GI Prophylaxis: Ppi Prognosis is guarded
[2022-07-30 12:36] LABS: Basophils # (A) 0.05 X 10*3/uL (0.00-0.10); Basophils % (A) 0.7 %; Eosinophils # (A) 0.22 X 10*3/uL (0.04-0.35); Eosinophils % (A) 3.1 %; Immature Grans, Automated 0.3 %; Lymphocytes # (A) 1.65 X 10*3/uL (0.90-5.00); Lymphocytes % (A) 23.2 %; Monocytes # (A) 0.67 X 10*3/uL (0.20-1.00); Monocytes % (A) 9.4 %; Neutrophils % (A) 63.3 %; RBC Morphology NORMAL
[2022-07-30] MEDS: POTASSIUM CHLORIDE ER 20 MEQ TAB.ER PO SCH ×5 (12:40→20:07)
[2022-07-30] MEDS: SODIUM CHLORIDE 0.9% 1,000 ML IV SCH (12:40)
--- NOTE | 2022-07-30 13:11 | P.CONS ---
History of Present Illness - Reason for Consult Consult date: 07/30/22 Colitis/enteritis Requesting physician: Satinder E Sheet - Chief Complaint Nausea and vomiting, left flank pain - History of Present Illness This is 61-year-old female with a past medical history including Crohn's disease. She states she was diagnosed approximately 40 years ago. She follows with Dr. Dominguez [facility]. She is on Stelara monthly last dose was due on Saturday. Patient presented to the emergency department with complaints of intractable nausea vomiting, and left flank pain. States that she believes she had a kidney stone or possible kidney infection. She was having left flank pain has a history of multiple kidney stones in the past. States she had pain for 2 days decreased appetite with nausea and vomiting. Symptoms began last week Saturday and . States that she lost approximately 10 pounds weight loss due to not eating. She's been also having increased amounts of diarrhea. States she's had 3-4 bowel movements already this morning, loose watery. Denies any blood in her stools. She does have a history of 2 resections and a reversal of colostomy bag in the past. She states she had a low-grade temp at home around 99.5. Denies any recent sick contacts or traveling. However she does state that she has chickens as was cleaning her coop approximately 3 days prior to symptoms beginning. She was started on Levaquin and Flagyl. She's been afebrile. Stool cultures and C. diff were negative. She states her Crohn's di sease has been very well-controlled her last colonoscopy was in December 2021 which was clear. She had a CT of the abdomen and pelvis reporting nonspecific findings involving the small large bowel. Pouch containing fluid correlate with patient's surgical history. She currently denies any abdominal pain, just gassy feeling. Nausea and vomiting has resolved. Still continues with nonbloody diarrhea. Patient had elevated sed rate on admission at 54 as well as a WBC of 15.9. WBCs 7.1 hemoglobin 12 hematocrit 37 platelet count 144,000 sodium 139 potassium 2.7 BUN 10 creatinine 0.7 magnesium 1.6 total bilirubin 0.6 AST 20 4ALT 29 alkaline phosphatase 85 C-reactive protein less than 0.5, sed rate pending Review of Systems REVIEW OF SYSTEMS: CARDIOPULMONARY: No chest pain or shortness of breath. Gastrointestinal: No epigastric or abdominal pain. Nausea and vomiting now resolved. Nonbloody diarrhea. No hematemesis, coffee-ground emesis. No rectal bleeding, or melena. GENITOURINARY: No dysuria or hematuria. Left flank pain, now resolved. MUSCULOSKELETAL: Reports normal range of motion. SKIN: No rashes. No jaundice. ENDOCRINE: No chills, fevers. No excessive weight gain or loss. No polydipsia or polyuria. PSYCHIATRIC: Unremarkable. NEUROLOGY: No change in mental status. Denies dizziness, headache. ENT: Vision unremarkable. CONSTITUTIONAL: Reports 10 pound weight loss in one week. Low-grade fever at home. Past Medical History Past Medical History: GERD/Reflux, Hypertension, Renal Disease Additional Past Medical History / Comment(s): Hx. cardiac cath after subcut kidney surgery oct 2011 Hx. Crohns History of Any Multi-Drug Resistant Organisms: ESBL Year Discovered:: 04/02/20 MDRO Source:: URINE ESBL Past Surgical History: Bowel Resection, Heart Catheterization Additional Past Surgical History / Comment(s): Hx colostomy 1994-reversed since after 1 year. 2006 hernia rt lower abdomen()incisional) 2010- bowel resection, 2011-kidney sugery - subcut kidney surgery Past Psychological History: Anxiety Additional Psychological History / Comment(s): Hx. when pain was present Smoking Status: Never smoker Past Alcohol Use History: None Reported Past Drug Use History: Marijuana Additional Drug Use History / Comment(s): medical marijuana - Past Family History Father Family Medical History: Cancer, Prostate Disorder Sister(s) Family Medical History: Cancer Additional Family Medical History / Comment(s): One sister- cancer second sister -Diabetes Son(s) Family Medical History: Cancer Additional Family Medical History / Comment(s): Son-lymphoma at present Medications and Allergies Home Medications Medication Instructions Recorded Confirmed Type Levothyroxine Sodium [Synthroid] 25 mcg PO DAILY 03/29/14 07/26/22 History Metoprolol Succinate [Toprol XL] 50 mg PO DAILY 03/29/14 07/26/22 History Cyanocobalamin [Vitamin B-12 1,000 mcg SQ QMONTHLY 07/26/22 07/26/22 History Injection] Ustekinumab [Stelara] 90 mg SQ QMONTHLY 07/26/22 07/26/22 History Allergies Allergy/AdvReac Type Severity Reaction Status Date / Time erythromycin base Allergy Rash/Hives Verified 07/26/22 18:25 [Erythromycin Base] mesalamine [From Pentasa] Allergy Rash/Hives Verified 07/26/22 18:25 nifedipine [From Procardia] Allergy Rash/Hives Verified 07/26/22 18:25 Penicillins Allergy Rash/Hives Verified 07/26/22 18:25 Hood And Derivatives AdvReac Diarrhea Verified 07/28/22 10:53 [Hood] Physical Exam Vitals: Vital Signs Temp Pulse Resp BP Pulse Ox 07/30/22 07:00 98.4 F 85 18 122/74 97 07/30/22 02:03 98.6 F 68 18 121/61 97 07/29/22 22:26 114/72 07/29/22 20:00 88 16 07/29/22 19:03 98.5 F 89 17 124/69 96 07/29/22 13:38 98.6 F 88 16 119/73 95 Intake and Output 07/29/22 07/30/22 07/30/22 22:59 06:59 14:59 Other: Voiding Method Toilet # Voids 1 2 General appearance: The patient is alert, oriented, appears in no acute distress. HET: Head is normocephalic and atraumatic. Conjunctiva pink. Sclera anicteric. Neck: Supple without lymphadenopathy. Trachea midline. Heart: S1 S2. Regular rate and rhythm. Lungs: Clear to auscultation. Abdomen: Soft, nontender, nondistended with bowel sounds. No guarding or rigidity. Skin: No rashes. No jaundice. Extremities: Normal skin color and turgor. No pedal edema. Neurological: No focal deficits. Alert and oriented x3. Results CBC & Chem 7: 07/30/22 06:20 07/30/22 06:20 Labs: Microbiology - Last 24 Hours (Table) 07/26/22 19:51 Stool Culture - Final Stool CT scan - abdomen: report reviewed (CT of the abdomen and pelvis reporting nonspecific findings involving the small large bowel. Pouch containing fluid c orrelate with patient's surgical history. ) Assessment and Plan (1) Crohn's disease Narrative/Plan: 61-year-old female with a 40 year history of Crohn's disease who follows with [facility] Dr. Angelica burton to the emergency department 2 days ago with complaints of nausea vomiting, diarrhea and left flank pain. Patient thought initially she was just having a kidney infection possible kidney stone as she has a history. However she continued to have nausea vomiting and increased amounts of diarrhea. She reports nonbloody diarrhea, mucousy. Nausea and vomiting have resolved. She was started on Levaquin and Flagyl. She was noted to have leukocytosis on admission and a low-grade fever up to 99.9. States her Crohn's disease has been well managed on Stelara. Patient also reported cleaning her chicken to 3 days prior to her symptoms, need to also consider possible infectious colitis. Stool culture and C. diff were both negative. Will order further stool testing. However likely etiology is possible Crohn's exacerbation. Last colonoscopy 01/02 which she states was clear. She does have a history of previous resections and reversal of colostomy. Current Visit: Yes Status: Acute Code(s): K50.90 - CROHN'S DISEASE, UNSPECIFIED, WITHOUT COMPLICATIONS SNOMED Code(s): 87534087 (2) Diarrhea Current Visit: Yes Status: Acute Code(s): R19.7 - DIARRHEA, UNSPECIFIED SNOMED Code(s): 69122515 (3) Leukocytosis Narrative/Plan: Resolved Current Visit: Yes Status: Acute Code(s): D72.829 - ELEVATED WHITE BLOOD CELL COUNT, UNSPECIFIED SNOMED Code(s): 499184063 (4) Hypokalemia Current Visit: Yes Status: Acute Code(s): E87.6 - HYPOKALEMIA SNOMED Code(s): 76035510 (5) Hypomagnesemia Current Visit: Yes Status: Acute Code(s): E83.42 - HYPOMAGNESEMIA SNOMED Code(s): 016108716 Plan: 1. Continue symptomatic and supportive care 2. Recommend clear liquid diet, advance as tolerated 3. Inflammatory markers ordered 4. Continue antibiotics 5. Further stool testing ordered 6. Patient to bring Stelara in from home and may self administer 7. No plans on endoscopic evaluation Thank you for this consultation, we'll continue to follow. Dr. Janeth Hercules I agree with the dictator's note, documented as a scribe by Rosario Palacios.
[2022-07-30] MEDS ORDERED: USTEKINUMAB 90 MG/ML SQ SCH (16:45)
[2022-07-30] MEDS: LEVOFLOXACIN 500 MG TAB PO SCH (20:06)
[2022-07-30] MEDS: TEMAZEPAM 7.5 MG CAP PO PRN (22:10)
[2022-07-31] MEDS: LEVOTHYROXINE 25 MCG TAB PO SCH (05:50)
[2022-07-31] MEDS: SODIUM CHLORIDE 0.9% 1,000 ML IV SCH ×2 (05:50→16:28)
[2022-07-31] MEDS: hydrALAZINE HCL 50 MG TAB PO SCH ×2 (08:41→20:29)
[2022-07-31] MEDS: metroNIDAZOLE 500 MG TAB PO SCH ×3 (08:41→20:29)
[2022-07-31] MEDS: PANTOPRAZOLE 40 MG/10 ML VIAL IV SCH (08:42)
[2022-07-31] MEDS: HEPARIN SODIUM,PORCINE/PF 5,000 UNIT/0.5 ML SYRINGE SQ SCH ×2 (08:42→20:30)
[2022-07-31] MEDS: METOPROLOL SUCCINATE (ER) 50 MG TAB.ER.24H PO SCH (08:42)
[2022-07-31 08:58] LABS: Basophils # (A) 0.04 X 10*3/uL (0.00-0.10); Basophils % (A) 0.5 %; Eosinophils # (A) 0.19 X 10*3/uL (0.04-0.35); Eosinophils % (A) 2.6 %; HCT 36.3 % (37.2-46.3); HGB 11.9 g/dL (12.0-15.0); Immature Grans, Automated 0.1 %; Lymphocytes # (A) 1.89 X 10*3/uL (0.90-5.00); Lymphocytes % (A) 25.9 %; MCH 30.6 pg (27.0-32.0); MCHC 32.8 g/dL (32.0-37.0); MCV 93.3 fL (80.0-97.0); Mean Platelet Volume 11.3 fL (9.5-12.2); Monocytes # (A) 0.67 X 10*3/uL (0.20-1.00); Monocytes % (A) 9.2 %; NRBC Per 100 WBC 0 /100 WBCS (0.0-0.0); Neutrophils # (A) 4.49 X 10*3/uL (1.80-7.70); Neutrophils % (A) 61.7 %; Platelet Count 154 X 10*3/uL (140-440); RBC 3.89 X 10*6/uL (4.10-5.20); RDW 13.3 % (11.5-14.5); WBC 7.29 X 10*3/uL (4.50-10.00)
[2022-07-31] MEDS ORDERED: USTEKINUMAB 90 MG SQ SCH (09:00)
[2022-07-31 09:06] LABS: African American GFR (CKD) 107.6 (60.0-200.0); Anion Gap 10.5 mmol/L (10.00-18.00); BUN/Creat Ratio 9.86 Ratio (12.00-20.00); Blood Urea Nitrogen 6.9 mg/dL (9.0-27.0); Calcium 8.6 mg/dL (8.7-10.3); Carbon Dioxide 17.5 mmol/L (20.0-27.5); Magnesium 1.4 mg/dL (1.5-2.4); Non-African American GFR(CKD) 92.9 (60.0-200.0); Potassium 3.4 mmol/L (3.5-5.5)
[2022-07-31 11:23] LABS: Cryptosporidium Antigen Negative (Negative)
[2022-07-31] MEDS ORDERED: USTEKINUMAB SQ SCH (13:00)
--- NOTE | 2022-07-31 14:44 | CDI ---
Documentation Clarification Form Date: 07/31/2022 02:22:51 PM From: Anastasiia Elizabeth RN, CCDS Email: [email or web address] Admit Date: 07/30/2022 06:10:00 AM Patient Name: Teena Solomon I Visit Number: [id number] Discharge Date: ATTENTION: The Clinical Documentation Specialists (CDI) and [facility] Coding Staff appreciate your assistance in clarifying documentation. Please respond to the clarification below the line at the bottom and electronically sign. The CDI & [facility] Coding staff will review the response and follow-up if needed. Please note: Queries are made part of the Legal Health Record. If you have any questions, please contact the author of this message via ITS. Dr. Rajan E Sheet Mild Sepsis is documented in the 07/28-07/30 progress notes. Additional clarification is requested. History/Risk Factors: hypertension, hyperthyroidism, Crohn's disease Clinical Indicators: left flank pain, Nausea, vomiting, diarrhea 07/26 WBC: 15.9 07/26 Lactic acid: 2.0 Stool studies: negative 07/26 Vital signs: Temp 98, HR 132, RR 20, BP 160/92, pox 99% , 07/28 Temp 99.9 07/28 IM: "Possible acute gastroenteritis. Rule out bacterial gastroenteritis. Mild sepsis with mild fever and leukocytosis. Nausea vomiting secondary to above." Treatment: IV Levaquin 500mg Q24H, PO Flagyl 500mg TID, 0.9 NS @ 130mL/hr IV Bolus: 1L 0.9 NS In your professional opinion, please clarify if these findings signify one of the following conditions: [ ] Sepsis POA [ ] Sepsis ruled out [ ] SIRS, without underlying infectious process [ ] Other, please specify [ ] Unable to determine SIRS Criteria: 2 or more of the following may indicate SIRS -Temperature < 96.8F (36C) or > 101.0F (38.3C) -Heart Rate > 90 bpm -Respiratory Rate > 20 breaths/min or PaCO2 < 32 mmHg -White Blood Cell Count > 12,000 or < 4,000 cells/mm3 or > 10% bands no sepsis MTDD
--- NOTE | 2022-07-31 15:51 | P.PN ---
Subjective Progress Note Date: 07/31/22 Principal diagnosis: Crohn's This is 61-year-old female with a past medical history including Crohn's disease. She states she was diagnosed approximately 40 years ago. She follows with Dr. Dominguez [facility]. She is on Stelara monthly last dose was due on Saturday. Patient presented to the emergency department with complaints of intractable nausea vomiting, and left flank pain. States that she believes she had a kidney stone or possible kidney infection. She was having left flank pain has a history of multiple kidney stones in the past. States she had pain for 2 days decreased appetite with nausea and vomiting. Symptoms began last week Saturday and . States that she lost approximately 10 pounds weight loss due to not eating. She's been also having increased amounts of diarrhea. States she's had 3-4 bowel movements already this morning, loose watery. Denies any blood in her stools. She does have a history of 2 resections and a reversal of colostomy bag in the past. She states she had a low-grade temp at home around 99.5. Denies any recent sick contacts or traveling. However she does state that she has chickens as was cleaning her coop approximately 3 days prior to symptoms beginning. She was started on Levaquin and Flagyl. She's been afebrile. Stool cultures and C. diff were negative. She states her Crohn's disease has been very well-controlled her last colonoscopy was in December 2021 which was clear. She had a CT of the abdomen and pelvis reporting nonspecific findings involving the small large bowel. Pouch containing fluid correlate with patient's surgical history. She currently denies any abdominal pain, just gassy feeling. Nausea and vomiting has resolved. Still continues with nonbloody diarrhea. Patient had elevated sed rate on admission at 54 as well as a WBC of 15.9. 07/31/2022: Patient seen today and examined is a follow-up. She continues to have diarrhea. Yesterday she was stating that it was becoming a little bit more formed or mucousy now she states it is all water. She is having no associated abdominal cramping and pain. No nausea or vomiting. Yesterday her potassium dropped down to 2.7, potassium has been replaced and did come up to 3.4 today. She continues to deny any blood in her stool. Objective - Vital Signs Vital signs: Vital Signs Temp 98.4 F 07/31/22 07:05 Pulse 84 07/31/22 07:05 Resp 18 07/31/22 07:05 BP 141/72 07/31/22 07:05 Pulse Ox 97 07/31/22 07:05 FiO2 Intake & Output 07/30/22 07/31/22 07/31/22 18:59 06:59 18:59 Other: Voiding Method Toilet # Voids 1 2 - Exam General appearance: The patient is alert, oriented, appears in no acute distress. HET: Head is normocephalic and atraumatic. Conjunctiva pink. Sclera anicteric. Neck: Supple without lymphadenopathy. Abdomen: Soft, mild tenderness left lower quadrant, nondistended with bowel sounds. No guarding or rigidity. Extremities: Normal skin color and turgor. No pedal edema Skin: No rashes, no jaundice Neurological: No focal deficits. Alert and oriented. - Labs CBC & Chem 7: 07/31/22 05:27 07/31/22 05:27 Labs: Abnormal Lab Results - Last 24 Hours (Table) 07/30/22 07/30/22 07/30/22 Range/Units 06:20 06:20 06:20 RBC 3.89 L (4.10-5.20) X 10*6/uL Hgb (12.0-15.0) g/dL Hct (37.2-46.3) % MCHC 31.8 L (32.0-37.0) g/dL Potassium 2.7 L* (3.5-5.5) mmol/L Chloride (96-109) mmol/L Carbon Dioxide 18.0 L (20.0-27.5) mmol/L BUN (9.0-27.0) mg/dL BUN/Creatinine Ratio (12.00-20.00) Ratio Calcium 8.3 L (8.7-10.3) mg/dL Magnesium (1.5-2.4) mg/dL Conjugated Bilirubin <0.20 L (0.20-0.40) mg/dL Total Protein 5.3 L (6.2-8.2) g/dL Albumin 3.3 L (3.8-4.9) g/dL Procalcitonin 0.10 H (0.02-0.09) ng/mL 07/30/22 07/31/22 07/31/22 Range/Units 15:53 05:27 05:27 RBC 3.89 L (4.10-5.20) X 10*6/uL Hgb 11.9 L (12.0-15.0) g/dL Hct 36.3 L (37.2-46.3) % MCHC (32.0-37.0) g/dL Potassium 3.0 L 3.4 L (3.5-5.5) mmol/L Chloride 114 H (96-109) mmol/L Carbon Dioxide 17.5 L (20.0-27.5) mmol/L BUN 6.9 L (9.0-27.0) mg/dL BUN/Creatinine Ratio 9.86 L (12.00-20.00) Ratio Calcium 8.6 L (8.7-10.3) mg/dL Magnesium 1.4 L (1.5-2.4) mg/dL Conjugated Bilirubin (0.20-0.40) mg/dL Total Protein (6.2-8.2) g/dL Albumin (3.8-4.9) g/dL Procalcitonin (0.02-0.09) ng/mL Microbiology - Last 24 Hours (Table) 07/26/22 19:51 Stool Culture - Final Stool Assessment and Plan (1) Crohn's disease Narrative/Plan: 61-year-old female with a 40 year history of Crohn's disease who follows with [facility] Dr. Angelica burton to the emergency department 2 days ago with complaints of nausea vomiting, diarrhea and left flank pain. Patient thought initially she was just having a kidney infection possible kidney stone as she has a history. However she continued to have nausea vomiting and increased amounts of diarrhea. She reports nonbloody diarrhea, mucousy. Nausea and vomiting have resolved. She was started on Levaquin and Flagyl. She was noted to have leukocytosis on admission and a low-grade fever up to 99.9. States her Crohn's disease has been well managed on Stelara. Patient also reported cl eaning her chicken to 3 days prior to her symptoms, need to also consider possible infectious colitis. Stool culture and C. diff were both negative. Will order further stool testing. However likely etiology is possible Crohn's exacerbation. Last colonoscopy 01/02 which she states was clear. She does have a history of previous resections and reversal of colostomy. Current Visit: Yes Status: Acute Code(s): K50.90 - CROHN'S DISEASE, UNSPECIFIED, WITHOUT COMPLICATIONS SNOMED Code(s): 92336771 (2) Diarrhea Current Visit: Yes Status: Acute Code(s): R19.7 - DIARRHEA, UNSPECIFIED SNOMED Code(s): 47837298 (3) Leukocytosis Narrative/Plan: Resolved Current Visit: Yes Status: Acute Code(s): D72.829 - ELEVATED WHITE BLOOD CELL COUNT, UNSPECIFIED SNOMED Code(s): 529207916 (4) Hypokalemia Current Visit: Yes Status: Acute Code(s): E87.6 - HYPOKALEMIA SNOMED Code(s): 43166686 (5) Hypomagnesemia Current Visit: Yes Status: Acute Code(s): E83.42 - HYPOMAGNESEMIA SNOMED Code(s): 813964708 Plan: 1. Continue symptomatic and supportive care 2. Advanced to a low fiber diet 3. Start prednisone 20 mg IV every 8 hours 4. Continue antibiotics 5. Further stool testing ordered 6. No plans on endoscopic evaluation 7. Questran initially ordered, however patient declining to take 8. 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 Dr. Janeth Hercules I agree with the dictator's note, documented as a scribe by Rosario Palacios.
[2022-07-31] MEDS: POTASSIUM CHLORIDE ER 20 MEQ TAB.ER PO SCH ×2 (16:25→17:47)
[2022-07-31] MEDS: methylPREDNISolone SOD SUCCI 40 MG/ML 1 ML VIAL IV SCH ×2 (16:25→23:39)
[2022-07-31] MEDS: ACETAMINOPHEN TAB 500 MG TAB PO PRN (17:27)
[2022-07-31] MEDS ORDERED: CHOLESTYRAMINE (WITH SUGAR) 4 GM PACKET PO SCH (18:00)
[2022-07-31] MEDS ORDERED: MAGNESIUM SULFATE-D5W PMX 1 GM in DEXTROSE/WATER 1 100ML.BAG IVPB ONE (20:24)
--- NOTE | 2022-07-31 20:27 | P.PN ---
Subjective This is a pleasant 61 years old female with past medical history of hypertension, hyperthyroidism, history of Crohn disease and follow-up with Dr. quita fournier at [facility] and history of left kidney stone and follow-up with the kidney Dr. [facility] as well Abdominal pain and diarrhea Patient states that last Saturday about 4-5 days ago she suffered from left flank pain similar to her kidney stone pain for which she took some pain medication and feel better by the evening. Next day she started having diarrhea and that is why she came to the hospital with nausea vomiting and diarrhea. She felt like she has exacerbation of her coronary disease however she denies blood in her stool. She has about 2-3 bouts of loose stool daily. Associated with vomiting twice yesterday and once this morning with no blood other than her stool or vomitus. Then abdominal pain is gone now, rated as 0/10 by her for her abdomen soft with very mild LLQ tenderness with no rebound tenderness or guarding. She denies chest pain or dyspnea, no headache or dizziness, no numbness or asymmetric weakness. Patient feels generally weak and malaise. No dysuria or urgency She had little dyspnea yesterday but she thinks resolved now. She has some dry cough with little phlegm but no chest pain Patient is afebrile on admission. Blood pressure is elevated 178/69 Labs showed leukocytosis of 15.9, elevated hemoglobin of 17.1 with platelet count normal at 359. Some multiple looks more concentrated BMP shown normal sodium 137 potassium 3.4. Creatinine is slightly elevated at 1.0. Baseline 0.7-0.8 AST and ALT are normal. C. diff is negative. Viruses are undetected including influenza type A and B, RSV and coronavirus EKG showing normal sinus rhythm at [address]-T changes. In the emergency room patient received normal saline, Zofran, Reglan and ativan. 07/28/2022 Patient is tolerating liquid diet and asked him to be advanced to regular diet, she states that liquid foods and oral potassium hurts her stomach, patient was advised to use fluids like banana and she is agreeable and will bring her more fluid. No abdominal pain, she had watery bowel movements but slightly better compared to yesterday. Today patient started developing mild leukocytosis of 10.7 and also low-grade fever of 9.9. Therefore going to start the patient empirically on oral Levaquin and Flagyl, and antibiotic limited by her ALLERGY profile. Stool culture are still pending. IV fluids were stopped. CRP is normal and ESR only mildly elevated, makes Crohn's is less likely. 07/29/2022 Patient feels better, she is happy she slipped well more than 6 hours last night. She still complaining of from watery diarrhea once a day, no abdominal pain but she has mild right lower quadrant tenderness that this lasted only for a few minutes. Patient states she is eating well. Patient had low-grade fever 99.9 and mild leukocytosis yesterday. Patient agrees with antibiotic Flagyl and Levaquin. CT of the abdomen and pelvis with IV contrast and no oral contrast [patient declined oral contrast] after risks of nephrotoxicity is explained to her e xtensively. Patient has gallstones within the gallbladder, possible sludge and gallbladder neck stone. No evidence of gallbladder wall thickening. Bowel: Postoperative changes, there is sizable bulge along the suture line containing fluid which is increasing in size compared to prior CT. Thickening of the colonic wall could be due to underlying colitis. There is also thickening along the small bowel possibly indicative of enteritis. No evident abscess. 07/30/2022 Patient still have diarrhea about 5-6 times yesterday and 3 this morning and still watery. No significant vomiting or abdominal pain. Hemodynamically stable. Pro-calcitonin is trending up ESR slightly elevated. CRP was normal. CT of the abdomen and pelvis showing enteritis and colitis She had mild right upper quadrant discomfort. She states she has chronic gallstone. We will consult GI service and check liver ultrasound 07/31/2022 Patient was in distress because of her frequent diarrhea overnight as well as she was on liquid diet and wants her diet to be advanced. Currently she is on more regular diet. Hemodynamically stable. Low electrodes were placed Patient remains on Flagyl and Levaquin GI input is appreciated and IV Solu-Medrol is a started for possible Crohn's exacerbation We will check ESR and CRP tomorrow Objective - Vital Signs Vital signs: Vital Signs Temp 98.4 F 07/31/22 07:05 Pulse 84 07/31/22 07:05 Resp 18 07/31/22 07:05 BP 141/72 07/31/22 07:05 Pulse Ox 97 07/31/22 07:05 FiO2 Intake & Output 1007/31/22 07/31/22 18:59 06:59 18:59 Other: Voiding Method Toilet # Voids 1 2 1 - Exam -GENERAL: The patient is alert and oriented x3, not in any acute distress. Well developed, well nourished. Lethargic HEENT: Pupils are round and equally reacting to light. EOMI. No scleral icterus. No conjunctival pallor. Normocephalic, atraumatic. No pharyngeal erythema. No thyromegaly. CARDIOVASCULAR: S1 and S2 present. No murmurs, rubs, or gallops. PULMONARY: Chest is clear to auscultation, no wheezing or crackles. -ABDOMEN: Soft, Mild LLQ tenderness, resolved , nondistended, normoactive bowel sounds. No palpable organomegaly. MUSCULOSKELETAL: No joint swelling or deformity. EXTREMITIES: No cyanosis, clubbing, or pedal edema. NEUROLOGICAL: Gross neurological examination did not reveal any focal deficits. SKIN: No rashes. no petechiae. - Labs CBC & Chem 7: 07/31/22 05:27 07/31/22 05:27 Labs: Abnormal Lab Results - Last 24 Hours (Table) 07/30/22 07/31/22 07/31/22 Range/Units 15:53 05:27 05:27 RBC 3.89 L (4.10-5.20) X 10*6/uL Hgb 11.9 L (12.0-15.0) g/dL Hct 36.3 L (37.2-46.3) % Potassium 3.0 L 3.4 L (3.5-5.1) mmol/L Chloride 114 H (96-109) mmol/L Carbon Dioxide 17.5 L (20.0-27.5) mmol/L BUN 6.9 L (9.0-27.0) mg/dL BUN/Creatinine Ratio 9.86 L (12.00-20.00) Ratio Calcium 8.6 L (8.7-10.3) mg/dL Magnesium 1.4 L (1.5-2.4) mg/dL Microbiology - Last 24 Hours (Table) 07/26/22 19:51 Stool Culture - Final Stool Assessment and Plan Assessment: acute colitis and possible enteritis. Mostly secondary Crohn's exacerbation with possible superimposed bacterial gastroenteritis No sepsis Gallbladder disease with gallstones and possible sludge. No wall thickening Nausea vomiting secondary to above Acute kidney injury, mild most likely prerenal secondary to above history of Crohn disease and follow-up with Dr. mojica at [facility] history of left kidney stone and follow-up with the kidney Dr. [facility] as well Hypertension Hypothyroidism Plan: This is a pleasant 61 years old female with possible acute gastroenteritis Continue with Flagyl and Levaquin continue with IV fluids , normal saline with potassium consult GI service Labs and medication were reviewed.. Continue same treatment. Continue with symptomatic treatment. Resume home medication. Monitor lytes and vitals. DVT and GI prophylaxis. Further recommendations as per clinical course of the patient DVT prophylaxis: Subcutaneous heparin GI Prophylaxis: Ppi Prognosis is guarded
[2022-07-31] MEDS: LEVOFLOXACIN 500 MG TAB PO SCH (20:30)
[2022-07-31] MEDS: 0.9% NACL WITH KCL 20 MEQ/L 1,000 ML IV SCH (20:30)
[2022-07-31] MEDS: ALPRAZolam 0.25 MG TAB PO PRN (20:30)
[2022-07-31] MEDS: TEMAZEPAM 7.5 MG CAP PO PRN (22:01)
[2022-08-01] MEDS: LEVOTHYROXINE 25 MCG TAB PO SCH (05:48)
[2022-08-01 08:26] VITALS: BP 134/77; PULSE 83; RESP 18; TEMP 98.7
[2022-08-01] MEDS: HEPARIN SODIUM,PORCINE/PF 5,000 UNIT/0.5 ML SYRINGE SQ SCH (09:00)
[2022-08-01] MEDS: methylPREDNISolone SOD SUCCI 40 MG/ML 1 ML VIAL IV SCH (09:00)
[2022-08-01] MEDS: PANTOPRAZOLE 40 MG/10 ML VIAL IV SCH (09:00)
[2022-08-01] MEDS: METOPROLOL SUCCINATE (ER) 50 MG TAB.ER.24H PO SCH (09:01)
[2022-08-01] MEDS: hydrALAZINE HCL 50 MG TAB PO SCH (09:01)
[2022-08-01] MEDS: metroNIDAZOLE 500 MG TAB PO SCH (09:01)
[2022-08-01] MEDS: 0.9% NACL WITH KCL 20 MEQ/L 1,000 ML IV SCH (09:10)
--- NOTE | 2022-08-01 09:25 | P.PN ---
Subjective Progress Note Date: 08/01/22 Principal diagnosis: Crohn's This is 61-year-old female with a past medical history including Crohn's disease. She states she was diagnosed approximately 40 years ago. She follows with Dr. Dominguez [facility]. She is on Stelara monthly last dose was due on Saturday. Patient presented to the emergency department with complaints of intractable nausea vomiting, and left flank pain. States that she believes she had a kidney stone or possible kidney infection. She was having left flank pain has a history of multiple kidney stones in the past. States she had pain for 2 days decreased appetite with nausea and vomiting. Symptoms began last week Saturday and . States that she lost approximately 10 pounds weight loss due to not eating. She's been also having increased amounts of diarrhea. States she's had 3-4 bowel movements already this morning, loose watery. Denies any blood in her stools. She does have a history of 2 resections and a reversal of colostomy bag in the past. She states she had a low-grade temp at home around 99.5. Denies any recent sick contacts or traveling. However she does state that she has chickens as was cleaning her coop approximately 3 days prior to symptoms beginning. She was started on Levaquin and Flagyl. She's been afebrile. Stool cultures and C. diff were negative. She states her Crohn's disease has been very well-controlled her last colonoscopy was in December 2021 which was clear. She had a CT of the abdomen and pelvis reporting nonspecific findings involving the small large bowel. Pouch containing fluid correlate with patient's surgical history. She currently denies any abdominal pain, just gassy feeling. Nausea and vomiting has resolved. Still continues with nonbloody diarrhea. Patient had elevated sed rate on admission at 54 as well as a WBC of 15.9. 07/31/2022: Patient seen today and examined is a follow-up. She continues to have diarrhea. Yesterday she was stating that it was becoming a little bit more formed or mucousy now she states it is all water. She is having no associated abdominal cramping and pain. No nausea or vomiting. Yesterday her potassium dropped down to 2.7, potassium has been replaced and did come up to 3.4 today. She continues to deny any blood in her stool. 08/01/2022: Patient is seen and examined today as a follow-up. She states diarrhea is improving. She states there is a little bit of form to it. Denies any abdominal pain, nausea or vomiting. She is afebrile. She is tolerating her regular diet. Objective - Vital Signs Vital signs: Vital Signs Temp 97.8 F 08/01/22 02:39 Pulse 79 08/01/22 02:39 Resp 16 08/01/22 02:39 BP 113/66 08/01/22 02:39 Pulse Ox 96 08/01/22 02:39 FiO2 Intake & Output 07/31/22 08/01/22 08/01/22 18:59 06:59 18:59 Intake Total 476 Balance 476 Intake: Oral 476 Other: Voiding Method Toilet # Voids 1 1 # Bowel Movements 1 - Exam General appearance: The patient is alert, oriented, appears in no acute distress. HET: Head is normocephalic and atraumatic. Conjunctiva pink. Sclera anicteric. Neck: Supple without lymphadenopathy. Abdomen: Soft, nontender, nondistended with bowel sounds. No guarding or rigidity. Extremities: Normal skin color and turgor. No pedal edema Skin: No rashes, no jaundice Neurological: No focal deficits. Alert and oriented. - Labs CBC & Chem 7: 07/31/22 05:27 08/01/22 05:25 Labs: Abnormal Lab Results - Last 24 Hours (Table) 07/31/22 07/31/22 Range/Units 05:27 05:27 RBC 3.89 L (4.10-5.20) X 10*6/uL Hgb 11.9 L (12.0-15.0) g/dL Hct 36.3 L (37.2-46.3) % Potassium 3.4 L (3.5-5.5) mmol/L Chloride 114 H (96-109) mmol/L Carbon Dioxide 17.5 L (20.0-27.5) mmol/L BUN 6.9 L (9.0-27.0) mg/dL BUN/Creatinine Ratio 9.86 L (12.00-20.00) Ratio Calcium 8.6 L (8.7-10.3) mg/dL Magnesium 1.4 L (1.5-2.4) mg/dL Assessment and Plan (1) Crohn's disease Narrative/Plan: 61-year-old female with a 40 year history of Crohn's disease who follows with [facility] Dr. Angelica burton to the emergency department 2 days ago with complaints of nausea vomiting, diarrhea and left flank pain. Patient thought initially she was just having a kidney infection possible kidney stone as she has a history. However she continued to have nausea vomiting and increased amounts of diarrhea. She reports nonbloody diarrhea, mucousy. Nausea and vomiting have resolved. She was started on Levaquin and Flagyl. She was noted to have leukocytosis on admission and a low-grade fever up to 99.9. States her Crohn's disease has been well managed on Stelara. Patient also reported cleaning her chicken to 3 days prior to her symptoms, need to also consider possible infectious colitis. Stool culture and C. diff were both negative. W ill order further stool testing. However likely etiology is possible Crohn's exacerbation. Last colonoscopy 01/02 which she states was clear. She does have a history of previous resections and reversal of colostomy. Solu-Medrol 20 mg IV every 8 hours was started. Patient is responding well. We'll plan on discharge on the prednisone taper dose. Follow-up with her specialist Dr. Dominguez next week. Current Visit: Yes Status: Acute Code(s): K50.90 - CROHN'S DISEASE, UNSPECIFIED, WITHOUT COMPLICATIONS SNOMED Code(s): 35948793 (2) Diarrhea Current Visit: Yes Status: Acute Code(s): R19.7 - DIARRHEA, UNSPECIFIED SNOMED Code(s): 34264029 (3) Leukocytosis Narrative/Plan: Resolved Current Visit: Yes Status: Acute Code(s): D72.829 - ELEVATED WHITE BLOOD CELL COUNT, UNSPECIFIED SNOMED Code(s): 579276971 (4) Hypokalemia Current Visit: Yes Status: Acute Code(s): E87.6 - HYPOKALEMIA SNOMED Code(s): 01913592 (5) Hypomagnesemia Current Visit: Yes Status: Acute Code(s): E83.42 - HYPOMAGNESEMIA SNOMED Code(s): 943923413 Plan: 1. Continue symptomatic and supportive care 2. Advanced to a low fiber diet 3. Continue prednisone 20 mg IV every 8 hours, transition to prednisone 40 mg outpatient 4. Stool studies completed, then negative to date 5. No plans on endoscopic evaluation 6. Prednisone taper dose sent to pharmacy 7. Patient is cleared by gastroenterology for discharge, she has appointment set up next week with Dr. Dominguez on 08/08/2022 Thank you for this consultation. Dr. aJneth Hercules I agree with the dictator's note, documented as a scribe by Rosario Palacios.
[2022-08-01] MEDS ORDERED: POTASSIUM CHLORIDE ER 20 MEQ TAB.ER PO STA (11:00)
--- NOTE | 2022-08-02 00:52 | P.DS ---
Providers Date of admission: 07/30/22 06:10 Attending physician: Alina Hyman Consults: 07/29/22 18:10 Consult Physician Routine Consulting Provider: Tiffani Hercules Consult Reason/Comments: colitis/enteritis Do you want consulting provider notified?: Yes, Notify in am Primary care physician: [facility] Course: Diagnoses: acute colitis and possible enteritis. Mostly secondary Crohn's exacerbation with possible superimposed bacterial gastroenteritis Gallbladder disease with gallstones and possible sludge. No wall thickening. Asymptomatic Nausea vomiting secondary to above. Resolved Acute kidney injury, mild most likely prerenal secondary to above . Resolved history of Crohn disease and follow-up with Dr. dominguez at [facility] Hypothy[facility] Hospital course: This is a pleasant 61 years old female with past medical history of hypertension, hyperthyroidism, history of Crohn disease and follow-up with Dr. dominguez at [facility] and history of left kidney stone [facility] Abdominal pain and diarrhea. Patient had mild leukocytosis and mild fever 99.9, infectious gastroenteritis is suspected and patient was started with antibiotics Flagyl and Levaquin, patient showed gradual and slow improvement. However patient remains symptomatic. GI service which wasn't available by the end of the hospital stay up for the patient were consulted and after evaluation Crohn's disease is exacerbation is also suspected based on the CAT scan of the abdomen and pelvis was showing colitis and possible enteritis. Steroids were added as well as symptomatic treatment and patient showed interval improvement in today she had a formed bowel movement with no abdominal pain and tenderness diet and patient was eager to be discharged and going home today. She denies any other symptoms, no chest pain or dyspnea, no urinary or no headache or weakness or numbness. No fever Patient was cleared for discharge by information assistant Problems and management plan were discussed with the patient and he verbalized understanding and acceptance Patient was found stable and can be discharged home however he needs follow-up as an outpatient. Patient was instructed to follow up with PCP within one week and patient agrees Also patient was instructed to follow up next week with Dr. Domignuez on 08/08/2022 Physical exam Gen: patient is a AAOx3, no distress CVS: S1-S2, RRR, no murmur Lungs: B/L CTA, no wheezing Abdomen: soft, no distention, no tenderness, positive bowel sounds Extremity: no leg edema or induration Time spent more than 35 minutes Patient Condition at Discharge: Serious Plan - Discharge Summary New Discharge Prescriptions: New hydrALAZINE HCL [Apresoline] 50 mg PO BID #60 tab metroNIDAZOLE [Flagyl] 500 mg PO TID 7 Days #21 tab Levofloxacin [Levaquin] 500 mg PO Q24H 7 Days #7 tab predniSONE 0 mg PO DIRECTED #74 tab Omeprazole [PriLOSEC] 20 mg PO AC-BID #60 cap Continue Metoprolol Succinate [Toprol XL] 50 mg PO DAILY Levothyroxine Sodium [Synthroid] 25 mcg PO DAILY Ustekinumab [Stelara] 90 mg SQ QMONTHLY Cyanocobalamin [Vitamin B-12 Injection] 1,000 mcg SQ QMONTHLY Discharge Medication List Levothyroxine Sodium [Synthroid] 25 mcg PO DAILY 03/29/14 [History] Metoprolol Succinate [Toprol XL] 50 mg PO DAILY 03/29/14 [History] Cyanocobalamin [Vitamin B-12 Injection] 1,000 mcg SQ QMONTHLY 07/26/22 [History] Ustekinumab [Stelara] 90 mg SQ QMONTHLY 07/26/22 [History] Levofloxacin [Levaquin] 500 mg PO Q24H 7 Days #7 tab 08/01/22 [Rx] Omeprazole [PriLOSEC] 20 mg PO AC-BID #60 cap 08/01/22 [Rx] hydrALAZINE HCL [Apresoline] 50 mg PO BID #60 tab 08/01/22 [Rx] metroNIDAZOLE [Flagyl] 500 mg PO TID 7 Days #21 tab 08/01/22 [Rx] predniSONE 0 mg PO DIRECTED #74 tab 08/01/22 [Rx] Follow up Appointment(s)/Referral(s): Cameron Toribio MD [STAFF PHYSICIAN] - 1-2 days Patient Instructions/Handouts: Dehydration (DC), Low Fiber Diet (DC), Gastroenteritis (DC) Activity/Diet/Wound Care/Special Instructions: Low fiber diet, encourage food rich in potassium and magnesium like fruits and vegetables like banana and oranges Activity is restricted till you see your doctor You have appointment set up next week with Dr. Dominguez on 08/08/2022. we recommend to follow up with the appointment Discharge Disposition: HOME SELF-CARE
== END 2022-08-01 12:45 | disposition home or self-care (01) | DRG 372 ==
LOC: EC 18:01 → 6NMEDSUR 20:20 → OBSVTOIN 07-30 06:10
PROVIDERS: ADMIT Hospitalist; ATTEND Hospitalist
DX: A04.9 Bacterial intestinal infection, unspecified (principal); E87.20 Acidosis, unspecified; N17.9 Acute kidney failure, unspecified; K50.90 Crohn's disease, unspecified, without complications; R65.10 Systemic inflammatory response syndrome (SIRS) of non-infectious origin without acute organ dysfunction; Z20.822 Contact with and (suspected) exposure to COVID-19; K52.9 Noninfective gastroenteritis and colitis, unspecified; I10 Essential (primary) hypertension; E03.9 Hypothyroidism, unspecified; E87.6 Hypokalemia; E83.42 Hypomagnesemia; E86.0 Dehydration; F41.9 Anxiety disorder, unspecified; K80.20 Calculus of gallbladder without cholecystitis without obstruction; K82.8 Other specified diseases of gallbladder; Z79.890 Hormone replacement therapy; Z79.899 Other long term (current) drug therapy; Z87.442 Personal history of urinary calculi; Z93.3 Colostomy status; Z88.1 Allergy status to other antibiotic agents; Z88.0 Allergy status to penicillin; Z88.8 Allergy status to other drugs, medicaments and biological substances
CPT/HCPCS: 36415; 71046; 74177; 80048; 80053; 80076; 81001; 81003; 83605; 83735; 84132; 84145; 85025; 85652; 86140; 87045; 87046; 87324; 87328; 87329; 87636; 93005; 96361; 96374; 96375; 99285